=== PATIENT | female | born 1960 | race Caucasian/White ===

== ENCOUNTER 2016-12-16 13:25 | Emergency (ER) | payer MEDICARE, MEDICAID ==
[2016-12-16 14:02] VITALS: BP 126/83
[2016-12-16] MEDS ORDERED: Sodium Chloride 0.9% 10 ML Syringe FLUSH PRN (14:14)
[2016-12-16] MEDS ORDERED: Ketorolac 30 MG/ML SDV IVPUSH SCH (14:15)
[2016-12-16] MEDS ORDERED: methylPREDNISolone Sodium Succinate 125 MG/2 ML SDV IVPUSH ONE (14:16)
[2016-12-16] MEDS ORDERED: Metoclopramide 10 MG/2 ML SDV IVPUSH ONE (14:17)
[2016-12-16] MEDS ORDERED: HYDROmorphone 1 MG/ML Syringe IVPUSH ONE (14:17)
--- NOTE | 2016-12-16 14:20 | EDM.PDOC ---
ED HPI GENERAL MEDICAL PROBLEM - General Chief Complaint: Back Pain or Injury Stated Complaint: BACK PAIN Time Seen by Provider: 12/16/16 14:13 Source of Information: Reports: Patient History Limitations: Reports: No Limitations - History of Present Illness INITIAL COMMENTS - FREE TEXT/NARRATIVE: 56-year-old female presents to the ED with an acute exacerbation of chronic low back pain. She's not sure that she did anything out of the ordinary although she states she did a lot of housecleaning on Thursday, December 13. By Thursday morning she was experiencing increased low back pain and limited mobility. Condition worsened yesterday to the point she could hardly walk or get to the toilet. Today she states she could even dress herself. Patient has had 3 previous lumbar spine surgical procedures presumably all for discectomies as she reports no hardware has been placed in her lower back. She states they wanted to do another surgery but she has refused. He does with a chronic back pain but this is worse today than she's experienced for a lengthy period of time. Currently has pain across her lower back that radiates into both but talks and posterior laterally into both knees. She did not comment that the pain radiated below the knees. States her bowel and bladder function is still working normally as long as she can get on and off the toilet. No recent falls or injuries. Patient is currently using oxycodone 10/325 mg tablets intermittently for pain relief and 800 mg Motrin every 6 hours. Onset: Gradual Onset Date: 12/13/16 Duration: Day(s): Location: Reports: Back (Diffuse low back pain radiate into both but talks and posterior legs to the knees.) Quality: Reports: Ache, Burning Severity: Severe Improves with: Reports: Rest Worsens with: Reports: Movement Context: Denies: Activity, Exercise, Lifting, Sick Contact, Trauma, Other Associated Symptoms: Reports: No Other Symptoms Treatments RN MATERNITY: Reports: Other (see below) Lower Back Pain Score (Numeric/FACES): 10 - Related Data Allergies Allergy/AdvReac Type Severity Reaction Status Date / Time diltiazem Allergy Facial Verified 12/16/16 14:03 Swelling Home Meds: Home Meds Aspirin 81 mg PO DAILY 02/21/14 [History] Furosemide [Lasix] 20 mg PO DAILY 02/21/14 [History] Ibuprofen 800 mg PO ONCALL PRN 02/21/14 [History] ALPRAZolam [Xanax] 2 mg PO BEDTIME 07/21/15 [History] Cyclobenzaprine [Flexeril] 10 mg PO BEDTIME PRN #10 tablet 12/16/16 [Rx] Prednisone [IJD: predniSONE] 20 mg PO ASDIRECTED #18 tab 12/16/16 [Rx] oxyCODONE HCl [Oxycodone HCl] 10 mg PO BID 12/16/16 [History] oxyCODONE HCl/Acetaminophen [Percocet 10-325 mg Tablet] 1 each PO Q4H PRN #30 tablet 12/16/16 [Rx] Past Medical History HEENT History: Reports: Impaired Vision Other HEENT History: Wears glasses [employer] History: Reports: Musculoskeletal History: Reports: Back Pain, Chronic (Chronic low back pain with 3 previous discectomies.), Fracture Endocrine/Metabolic History: Reports: Diabetes, Type II - Past Surgical History Musculoskeletal Surgical History: Reports: Other (See Below) Social & Family History - Tobacco Use Smoking Status *Q: Current Every Day Smoker Years of Tobacco use: 3 Packs/Tins Daily: 0.5 - Alcohol Use Days Per Week of Alcohol Use: 0 - Recreational Drug Use Recreational Drug Use: No - Living Situation & Occupation Living situation: Reports: , Single Occupation: Disabled ED ROS GENERAL - Review of Systems Review Of Systems: See Below Constitutional: Reports: No Symptoms HEENT: Reports: No Symptoms Respiratory: Reports: No Symptoms Cardiovascular: Reports: No Symptoms Endocrine: Reports: No Symptoms GI/Abdominal: Reports: Constipation Musculoskeletal: Reports: Back Pain Skin: Reports: No Symptoms (Chronic low back pain initially confined to the lower back without radiculopathy.) Neurological: Reports: No Symptoms Psychiatric: Reports: No Symptoms Hematologic/Lymphatic: Reports: No Symptoms Immunologic: Reports: No Symptoms ED EXAM,LOWER BACK PAIN/INJURY - Physical Exam Exam: See Below Exam Limited By: No Limitations General Appearance: Alert, WD/WN, Moderate Distress (Appears to be in significant discomfort.) Respiratory/Chest: No Respiratory Distress, Lungs Clear, Normal Breath Sounds, No Accessory Muscle Use Cardiovascular: Normal Peripheral Pulses, Regular Rate, Rhythm, No Edema, No Murmur GI/Abdominal: Normal Bowel Sounds, Soft, Non-Tender, No Organomegaly Back Exam: Muscle Spasm (Mild muscle spasm appreciated on the right side from thoracic 10 to lumbar 5. Point of maximal tenderness is over the L4-L5 facet joint bilaterally and L5-S1 bilaterally perhaps worse on the right side as compared to the left.), Vertebral Tenderness, Other (She has significant pain on palpation of the superior half of the right SI joint as well as compared to the left.) Extremities: Normal Inspection, Normal Range of Motion, Non-Tender, No Pedal Edema Neurological: Normal Mood/Affect, CN II-XII Intact, Oriented x 3. No: Normal Gait, Normal Reflexes DTR - Lower Extremities: 0: Ankle (R), Ankle (L), 1+: Knee (R), Knee (L) Psychiatric: Normal Affect, Normal Mood Skin Exam: Warm, Dry, Intact, Normal Color, No Rash Course - Vital Signs Last Recorded V/S: Last Vital Signs Temp 36.3 C 12/16/16 14:00 Pulse 74 12/16/16 14:00 Resp 16 12/16/16 14:00 BP 126/83 12/16/16 14:00 Pulse Ox 95 12/16/16 14:00 - Orders/Labs/Meds Orders: Active Orders 24 hr Category Date Time Status Peripheral IV Care [RC] . DIRECTED Care 12/16/16 14:15 Active Ketorolac [Toradol] Med 12/16/16 14:15 Active 30 mg IVPUSH ONETIME Sodium Chloride 0.9% [Saline Flush] Med 12/16/16 14:14 Active 10 ml FLUSH ASDIRECTED PRN Peripheral IV Insertion Adult [OM.PC] Stat Oth 12/16/16 14:15 Ordered Medication Orders Ketorolac Tromethamine (Toradol) 30 mg IVPUSH ONETIME DANNY Last Admin: 12/16/16 14:59 Dose: 30 mg Sodium Chloride (Saline Flush) 10 ml FLUSH ASDIRECTED PRN PRN Reason: Keep Vein Open Last Admin: 12/16/16 15:04 Dose: 10 ml Meds: Medications Generic Name Dose Route Start Last Admin Trade Name Freq PRN Reason Stop Dose Admin Ketorolac Tromethamine 30 mg 12/16/16 14:15 12/16/16 14:59 Toradol IVPUSH 30 mg ONETIME DANNY Administration Sodium Chloride 10 ml 12/16/16 14:14 12/16/16 15:04 Saline Flush FLUSH 10 ml ASDIRECTED PRN Administration Keep Vein Open Discontinued Medications Generic Name Dose Route Start Last Admin Trade Name Amelia PRN Reason Stop Dose Admin Hydromorphone HCl 1 mg 12/16/16 14:17 12/16/16 15:02 Dilaudid IVPUSH 12/16/16 14:18 1 mg ONETIME ONE Administration Methylprednisolone Sodium Succinate 125 mg 12/16/16 14:16 12/16/16 15:08 Solu-Medrol IVPUSH 12/16/16 14:17 125 mg ONETIME ONE Administration Metoclopramide HCl 10 mg 12/16/16 14:17 12/16/16 14:56 Reglan IVPUSH 12/16/16 14:18 10 mg ONETIME ONE Administration - Radiology Interpretation Free Text/Narrative:: 56-year-old female presents to the ED with acute exacerbation of her chronic low back pain. Patient is disabled due to chronic low back pain. She's had 3 previous lumbar spine surgeries without fusion. She lives with chronic back pain but states that she suffered a an acute flare of pain on Thursday, December 13. She feels she may have overdone it a bit on the fourth at home with house cleaning procedures. Pain is increased over the last 48 hours to the point where she can barely walk or get on or off the toilet or in and out of a vehicle. Pain medicine that she has at home is not helping. Examination reveals mild right-sided paraspinal muscle spasm with a maximal tenderness over L4-L5 and L5-S1 facet joints bilaterally worse on the right as compared to the left. The right superior aspect of SI joint is also very inflamed on exam. Plan IV medications Dilaudid 1 mg with Reglan 10 mg Toradol 30 mg IV and Solu-Medrol 125 mg IV. Departure - Departure Time of Disposition: 15:44 Disposition: Home, Self-Care 01 Condition: Fair Clinical Impression: Acute exacerbation of chronic low back pain - Discharge Information Prescriptions: Cyclobenzaprine [Flexeril] 10 mg PO BEDTIME PRN #10 tablet PRN Reason: Back muscle spasm Prednisone [IJD: predniSONE] 20 mg PO ASDIRECTED #18 tab oxyCODONE HCl/Acetaminophen [Percocet 10-325 mg Tablet] 1 each PO Q4H PRN #30 tablet PRN Reason: Low back pain Forms: ED Department Discharge Additional Instructions: Evaluation the emergency room today in regards to acute exacerbation of chronic lower back pain . 5 significant pain to palpation of facet joints lower back more in the right side than on the left. Treatment was started in the ED with pain medication Dilaudid 1 mg and antinausea Reglan 10 mg so that she don't vomit from the Dilaudid. Solu-Medrol is a steroid to reduce pain and inflammation starts to work in about 4-6 hours. Toradol 30 mg was given as an anti-inflammatory pain medicine. Treatment at home is Percocet 10//25 milligram tablet one every 4-6 hours as needed for pain relief. Suggest using MiraLAX powder 17 g or 1 scoop daily while on the pain medication and make sure he did not develop constipation secondary to pain medication. Suggest prednisone 20 mg with breakfast and then with supper for the next 6 days and then 1 tablet in the morning only for another 6 days to reduce pain and inflammation. Continue either Motrin 800 mg every 6-8 hours or Aleve 2 tablets every 8 hours for anti-inflammatory effect. May use Flexeril 10 mg at bedtime as needed for relief of muscle spasm and to help sleep. Plan is with medications to slowly improve pain and inflammation over the next 3-5 days. If condition worsens or the pain travels further down to the legs or you develop troubles with her bowel or bladder function i.e. loss of control then you would need to return to the hospital. Follow-up with her personal care physician as needed. - My Orders Last 24 Hours: My Active Orders 12/16/16 14:14 Sodium Chloride 0.9% [Saline Flush] 10 ml FLUSH ASDIRECTED PRN 12/16/16 14:15 Peripheral IV Care [RC] . DIRECTED Ketorolac [Toradol] 30 mg IVPUSH ONETIME Peripheral IV Insertion Adult [OM.PC] Stat - Assessment/Plan Last 24 Hours: My Active Orders 12/16/16 14:14 Sodium Chloride 0.9% [Saline Flush] 10 ml FLUSH ASDIRECTED PRN 12/16/16 14:15 Peripheral IV Care [RC] . DIRECTED Ketorolac [Toradol] 30 mg IVPUSH ONETIME Peripheral IV Insertion Adult [OM.PC] Stat
== END 2016-12-16 16:00 | disposition home or self-care (01) ==
LOC: JD.ED 13:25
DX: M54.5 Low back pain (principal); G89.29 Other chronic pain; E11.9 Type 2 diabetes mellitus without complications; F17.210 Nicotine dependence, cigarettes, uncomplicated; Z79.82 Long term (current) use of aspirin; Z79.899 Other long term (current) drug therapy; Z88.8 Allergy status to other drugs, medicaments and biological substances
CPT/HCPCS: 96374; 96375; 99283; J1170; J1885; J2765; J2930; J7050; 99284

== ENCOUNTER 2017-07-25 16:15 | Emergency (ER) | payer MEDICARE, MEDICAID ==
[2017-07-25] MEDS ORDERED: Sodium Chloride 0.9% 1,000 ML IV ONE (17:53)
[2017-07-25] MEDS ORDERED: fentaNYL 100 MCG/2 ML SDV IVPUSH ONE (17:53)
--- NOTE | 2017-07-25 18:05 | EDM.PDOC ---
ED HPI GENERAL MEDICAL PROBLEM - General Chief Complaint: Lower Extremity Injury/Pain Stated Complaint: LEFT HIP PAIN Time Seen by Provider: 07/25/17 17:12 Source of Information: Reports: Patient History Limitations: Reports: No Limitations - History of Present Illness INITIAL COMMENTS - FREE TEXT/NARRATIVE: 57 y/o F with L groin pain. States she's had worsening pain and swelling in the L groin area and also extending to the L labia. She states pain has been worsening over the past several days. Shaved in the area several days ago which seemed to provoke the problem. No drainage. No fever. It feels warm to the touch. Pain worse with touch or movement. Has chronic pain and is taking usual meds for pain. Left Hip Pain Score (Numeric/FACES): 10 - Related Data Allergies Allergy/AdvReac Type Severity Reaction Status Date / Time diltiazem Allergy Facial Verified 12/16/16 14:03 Swelling Home Meds: Home Meds Aspirin 81 mg PO DAILY 02/21/14 [History] Furosemide [Lasix] 20 mg PO DAILY 02/21/14 [History] Ibuprofen 800 mg PO ONCALL PRN 02/21/14 [History] ALPRAZolam [Xanax] 2 mg PO BEDTIME 07/21/15 [History] Cyclobenzaprine [Flexeril] 10 mg PO BEDTIME PRN #10 tablet 12/16/16 [Rx] Prednisone [IJD: predniSONE] 20 mg PO ASDIRECTED #18 tab 12/16/16 [Rx] oxyCODONE HCl [Oxycodone HCl] 10 mg PO BID 12/16/16 [History] oxyCODONE HCl/Acetaminophen [Percocet 10-325 mg Tablet] 1 each PO Q4H PRN #30 tablet 12/16/16 [Rx] Sulfamethoxazole/Trimethoprim [Bactrim Ds Tablet] 1 each PO BID #20 tablet 07/25 [Rx] Past Medical History HEENT History: Reports: Impaired Vision Other HEENT History: Wears glasses [employer] History: Reports: Musculoskeletal History: Reports: Back Pain, Chronic, Fracture Endocrine/Metabolic History: Reports: Diabetes, Type II - Past Surgical History GI Surgical History: Reports: Colonoscopy Female Surgical History: Reports: D&C Musculoskeletal Surgical History: Reports: Other (See Below) Social & Family History - Tobacco Use Smoking Status *Q: Current Every Day Smoker Years of Tobacco use: 30 Packs/Tins Daily: 1 - Caffeine Use Caffeine Use: Reports: Coffee - Alcohol Use Days Per Week of Alcohol Use: 0 - Recreational Drug Use Recreational Drug Use: No - Living Situation & Occupation Living situation: Reports: , Single Occupation: Disabled Review of Systems - Review of Systems Review Of Systems: See Below Constitutional: Denies: Fever Eyes: Reports: No Symptoms Ears: Reports: No Symptoms Respiratory: Reports: No Symptoms Cardiovascular: Reports: No Symptoms GI/Abdominal: Reports: No Symptoms Skin: Reports: Rash ED EXAM, GENERAL - Physical Exam Exam: See Below Exam Limited By: No Limitations General Appearance: Alert, WD/WN, No Apparent Distress Eye Exam: Bilateral Eye: Normal Inspection Nose: Normal Inspection Throat/Mouth: Normal Inspection Head: Atraumatic, Normocephalic Neck: Normal Inspection Respiratory/Chest: No Respiratory Distress (Female) Exam: Other (L groin area has patch of confluent erythema and induration. Just medial to the inguinal fold, at the lateral edge of the labia majora, she has a small area of fluctuance. no spontaneous drainage. ) Neurological: Alert, Oriented Psychiatric: Normal Affect, Normal Mood Skin Exam: Warm, Dry, Intact ED TRAUMA EXTREMITY PROCEDURES - I&D Site: left labia majora Skin Prep: Chlorhexidine (Hibiciens) Local Anesthesia: Lidocaine: 1% with EPI Local Anesthetic Volume: 3cc Area Incised With: 11 Blade Drainage: Purulent Probed to Break Up Loculations: Yes Packed With: 1/4 in. Iodoform Complications: No Course - Vital Signs Last Recorded V/S: Last Vital Signs Temp 36.2 C 07/25/17 16:39 Pulse 76 07/25/17 19:35 Resp 16 07/25/17 19:35 BP 151/74 H 07/25/17 19:35 Pulse Ox 91 L 07/25/17 19:35 - Orders/Labs/Meds Orders: Active Orders 24 hr Category Date Time Status Communication Order [RC] STAT Care 07/25/17 17:54 Active Meds: Medications Discontinued Medications Generic Name Dose Route Start Last Admin Trade Name Amelia PRN Reason Stop Dose Admin Fentanyl 100 mcg 07/25/17 17:53 Sublimaze IVPUSH 07/25/17 17:54 ONETIME ONE Hydromorphone HCl 2 mg 07/25/17 18:14 07/25/17 18:48 Dilaudid IM 07/25/17 18:15 2 mg ONETIME ONE Administration Hydromorphone HCl Confirm 07/25/17 18:47 07/25/17 18:48 Dilaudid Administered 07/25/17 18:48 Not Given Dose 2 mg .ROUTE .STK-MED ONE Sodium Chloride 1,000 mls @ 1,000 mls/hr 07/25/17 17:53 Normal Saline IV 07/25/17 18:52 ONETIME ONE Lidocaine/Epinephrine 20 ml 07/25/17 17:54 07/25/17 18:49 Xylocaine 1% With Epinephrine 1:100,000 INJECT 07/25/17 17:55 20 ml ONETIME ONE Administration Ondansetron HCl 4 mg 07/25/17 17:53 07/25/17 18:49 Zofran IVPUSH 07/25/17 17:54 Not Given ONETIME ONE Trimethoprim/Sulfamethoxazole 2 tab 07/25/17 18:02 07/25/17 18:49 Septra Ds PO 07/25/17 18:03 2 tab ONETIME ONE Administration - Re-Assessments/Exams Free Text/Narrative Re-Assessment/Exam: 07/26/17 07:25 Abscess drained with moderate amount of pus. She does have a couple of centimeters of surrounding cellulitis, so will treat with Bactrim. Advised her to f/u at walk in clinic for packing change on Thursday. Discussed return precautions. Departure - Departure Time of Disposition: 19:10 Disposition: Home, Self-Care 01 Clinical Impression: Abscess - Discharge Information Prescriptions: Sulfamethoxazole/Trimethoprim [Bactrim Ds Tablet] 1 each PO BID #20 tablet Instructions: Skin Abscess Referrals: Yamileth Muir PA-C [Primary Care Provider] - Forms: ED Department Discharge Additional Instructions: 1. Keep wound area clean and dry. Once daily before showering remove packing. After showering dry the area and replace some packing if possible. 2. Call the walk in clinic on Thursday to schedule a followup for packing change, ideally on Thursday. Call [phone] to schedule. 3. Take trimethoprim-sulfa (Bactrim) as prescribed 4. Take your usual medications for pain 5. Return to the Emergency Department if area of pain/swelling get worse, or if you get a fever, or for any other concerning symptoms - My Orders Last 24 Hours: My Active Orders 07/25/17 17:54 Communication Order [RC] STAT - Assessment/Plan Last 24 Hours: My Active Orders 07/25/17 17:54 Communication Order [RC] STAT
[2017-07-25] MEDS: HYDROmorphone 0.5 MG/0.5 ML SYRINGE ONE (18:48)
[2017-07-25] MEDS: HYDROmorphone 1 MG/ML Syringe IM ONE (18:48)
[2017-07-25] MEDS: Lidocaine 1% with EPINEPHrine 1:100,000 20 ML MDV INJECT ONE (18:49)
[2017-07-25] MEDS: Sulfamethoxazole/Trimethoprim 800-160 MG Tab PO ONE (18:49)
[2017-07-25] MEDS: Ondansetron 4 MG/2 ML SDV IVPUSH ONE (18:49)
[2017-07-25 19:43] VITALS: BP 151/74
== END 2017-07-25 19:38 | disposition home or self-care (01) ==
LOC: JD.ED 16:15
DX: N76.4 Abscess of vulva (principal); Z79.899 Other long term (current) drug therapy; E11.9 Type 2 diabetes mellitus without complications; F17.210 Nicotine dependence, cigarettes, uncomplicated; Z88.8 Allergy status to other drugs, medicaments and biological substances; Z79.82 Long term (current) use of aspirin
CPT/HCPCS: 56405; 99283; A9270; J1170; 10060; 96372

== ENCOUNTER 2017-12-28 05:04 | Emergency (ER) | payer MEDICARE, MEDICAID ==
[2017-12-28 05:15] VITALS: BP 147/78
[2017-12-28] MEDS ORDERED: HYDROmorphone 1 MG/ML Syringe IVPUSH ONE ×2 (05:28→07:25)
[2017-12-28] MEDS ORDERED: Metoclopramide 10 MG/2 ML SDV IVPUSH ONE (05:28)
--- NOTE | 2017-12-28 05:28 | EDM.PDOC ---
<Suleiman Lorenzo - Last Filed: 12/28/17 10:59> ED HPI GENERAL MEDICAL PROBLEM - General Chief Complaint: Abdominal Pain Stated Complaint: SEVERE ABDOMINAL PAIN LEFT SIDE Time Seen by Provider: 12/28/17 05:19 - Related Data Allergies Allergy/AdvReac Type Severity Reaction Status Date / Time diltiazem Allergy Facial Verified 12/28/17 05:11 Swelling Home Meds: Home Meds Aspirin 81 mg PO DAILY 02/21/14 [History] Furosemide [Lasix] 20 mg PO DAILY 02/21/14 [History] Ibuprofen 800 mg PO ONCALL PRN 02/21/14 [History] ALPRAZolam [Xanax] 2 mg PO BEDTIME 07/21/15 [History] Cyclobenzaprine [Flexeril] 10 mg PO BEDTIME PRN #10 tablet 12/16/16 [Rx] Prednisone [IJD: predniSONE] 20 mg PO ASDIRECTED #18 tab 12/16/16 [Rx] oxyCODONE HCl [Oxycodone HCl] 10 mg PO BID 12/16/16 [History] oxyCODONE HCl/Acetaminophen [Percocet 10-325 mg Tablet] 1 each PO Q4H PRN #30 tablet 12/16/16 [Rx] Sulfamethoxazole/Trimethoprim [Bactrim Ds Tablet] 1 each PO BID #20 tablet 07/25 [Rx] Course - Vital Signs Last Recorded V/S: Last Vital Signs Temp 36.6 C 12/28/17 05:12 Pulse 87 12/28/17 05:12 Resp 18 12/28/17 05:12 BP 147/78 H 12/28/17 05:12 Pulse Ox 94 L 12/28/17 05:12 - Orders/Labs/Meds Orders: Active Orders 24 hr Category Date Time Status Abdomen Pelvis w Cont [CT] Stat Exams 12/28/17 06:36 Taken Labs: Laboratory Tests 12/28/17 12/28/17 12/28/17 Range/Units 05:41 05:47 05:47 WBC 12.59 H (3.98-10.04) K/mm3 RBC 4.97 (3.98-5.22) M/mm3 Hgb 15.3 (11.2-15.7) gm/L Hct 44.8 (34.1-44.9) % MCV 90.1 (79.4-94.8) fl MCH 30.8 (25.6-32.2) pg MCHC 34.2 (32.2-35.5) g/dl RDW Std Deviation 43.2 (36.4-46.3) fL Plt Count 234 (182-369) K/mm3 MPV 9.8 (9.4-12.3) fl Neutrophils % (Manual) 50 (40-60) % Band Neutrophils % 0 (0-10) % Lymphocytes % (Manual) 43 H (20-40) % Atypical Lymphs % 0 % Monocytes % (Manual) 6 (2-10) % Eosinophils % (Manual) 1 (0.7-5.8) % Basophils % (Manual) 0 L (0.1-1.2) Platelet Estimate Adequate RBC Morph Comment Normal PT 10.3 (9.5-12.1) SECONDS INR 0.94 APTT 28 (24-31) SECONDS Sodium (136-145) mEq/L Potassium (3.5-5.1) mEq/L Chloride (98-107) mEq/L Carbon Dioxide (21-32) mEq/L Anion Gap (5-15) BUN (7-18) mg/dL Creatinine (0.55-1.02) mg/dL Est Cr Clr Drug Dosing mL/min Estimated GFR (MDRD) (>60) mL/min BUN/Creatinine Ratio (14-18) Glucose (74-106) mg/dL POC Glucose 223 H (70-105) mg/dL Hemoglobin A1c (4.50-6.20) % Lactic Acid (0.4-2.0) mmol/L Calcium (8.5-10.1) mg/dL Magnesium (1.8-2.4) mg/dl Total Bilirubin (0.2-1.0) mg/dL AST (15-37) U/L ALT (14-59) U/L Alkaline Phosphatase (46-116) U/L C-Reactive Protein (<1.0) mg/dL Total Protein (6.4-8.2) g/dl Albumin (3.4-5.0) g/dl Globulin gm/dL Albumin/Globulin Ratio (1-2) Lipase (73-393) U/L Urine Color (Yellow) Urine Appearance (Clear) Urine pH (5.0-8.0) Ur Specific [place] (1.005-1.030) Urine Protein (Negative) Urine Glucose (UA) (Negative) Urine Ketones (Negative) Urine Occult Blood (Negative) Urine Nitrite (Negative) Urine Bilirubin (Negative) Urine Urobilinogen (0.2-1.0) Ur Leukocyte Esterase (Negative) Urine RBC (0-5) /hpf Urine WBC (0-5) /hpf Ur Epithelial Cells (0-5) /hpf Urine Bacteria (FEW) /hpf Urine Mucus (FEW) /hpf 12/28/17 12/28/17 12/28/17 Range/Units 05:47 05:47 05:47 WBC (3.98-10.04) K/mm3 RBC (3.98-5.22) M/mm3 Hgb (11.2-15.7) gm/L Hct (34.1-44.9) % MCV (79.4-94.8) fl MCH (25.6-32.2) pg MCHC (32.2-35.5) g/dl RDW Std Deviation (36.4-46.3) fL Plt Count (182-369) K/mm3 MPV (9.4-12.3) fl Neutrophils % (Manual) (40-60) % Band Neutrophils % (0-10) % Lymphocytes % (Manual) (20-40) % Atypical Lymphs % % Monocytes % (Manual) (2-10) % Eosinophils % (Manual) (0.7-5.8) % Basophils % (Manual) (0.1-1.2) Platelet Estimate RBC Morph Comment PT (9.5-12.1) SECONDS INR APTT (24-31) SECONDS Sodium 140 (136-145) mEq/L Potassium 3.8 (3.5-5.1) mEq/L Chloride 103 (98-107) mEq/L Carbon Dioxide 26 (21-32) mEq/L Anion Gap 14.8 (5-15) BUN 12 (7-18) mg/dL Creatinine 0.9 (0.55-1.02) mg/dL Est Cr Clr Drug Dosing 71.56 mL/min Estimated GFR (MDRD) > 60 (>60) mL/min BUN/Creatinine Ratio 13.3 L (14-18) Glucose 221 H (74-106) mg/dL POC Glucose (70-105) mg/dL Hemoglobin A1c 7.70 H (4.50-6.20) % Lactic Acid 1.0 (0.4-2.0) mmol/L Calcium 8.5 (8.5-10.1) mg/dL Magnesium 1.9 (1.8-2.4) mg/dl Total Bilirubin 0.5 (0.2-1.0) mg/dL AST 20 (15-37) U/L ALT 29 (14-59) U/L Alkaline Phosphatase 118 H (46-116) U/L C-Reactive Protein 6.1 H* (<1.0) mg/dL Total Protein 7.7 (6.4-8.2) g/dl Albumin 3.5 (3.4-5.0) g/dl Globulin 4.2 gm/dL Albumin/Globulin Ratio 0.8 L (1-2) Lipase 61 L (73-393) U/L Urine Color (Yellow) Urine Appearance (Clear) Urine pH (5.0-8.0) Ur Specific [place] (1.005-1.030) Urine Protein (Negative) Urine Glucose (UA) (Negative) Urine Ketones (Negative) Urine Occult Blood (Negative) Urine Nitrite (Negative) Urine Bilirubin (Negative) Urine Urobilinogen (0.2-1.0) Ur Leukocyte Esterase (Negative) Urine RBC (0-5) /hpf Urine WBC (0-5) /hpf Ur Epithelial Cells (0-5) /hpf Urine Bacteria (FEW) /hpf Urine Mucus (FEW) /hpf 12/28/17 Range/Units 07:35 WBC (3.98-10.04) K/mm3 RBC (3.98-5.22) M/mm3 Hgb (11.2-15.7) gm/L Hct (34.1-44.9) % MCV (79.4-94.8) fl MCH (25.6-32.2) pg MCHC (32.2-35.5) g/dl RDW Std Deviation (36.4-46.3) fL Plt Count (182-369) K/mm3 MPV (9.4-12.3) fl Neutrophils % (Manual) (40-60) % Band Neutrophils % (0-10) % Lymphocytes % (Manual) (20-40) % Atypical Lymphs % % Monocytes % (Manual) (2-10) % Eosinophils % (Manual) (0.7-5.8) % Basophils % (Manual) (0.1-1.2) Platelet Estimate RBC Morph Comment PT (9.5-12.1) SECONDS INR APTT (24-31) SECONDS Sodium (136-145) mEq/L Potassium (3.5-5.1) mEq/L Chloride (98-107) mEq/L Carbon Dioxide (21-32) mEq/L Anion Gap (5-15) BUN (7-18) mg/dL Creatinine (0.55-1.02) mg/dL Est Cr Clr Drug Dosing mL/min Estimated GFR (MDRD) (>60) mL/min BUN/Creatinine Ratio (14-18) Glucose (74-106) mg/dL POC Glucose (70-105) mg/dL Hemoglobin A1c (4.50-6.20) % Lactic Acid (0.4-2.0) mmol/L Calcium (8.5-10.1) mg/dL Magnesium (1.8-2.4) mg/dl Total Bilirubin (0.2-1.0) mg/dL AST (15-37) U/L ALT (14-59) U/L Alkaline Phosphatase (46-116) U/L C-Reactive Protein (<1.0) mg/dL Total Protein (6.4-8.2) g/dl Albumin (3.4-5.0) g/dl Globulin gm/dL Albumin/Globulin Ratio (1-2) Lipase (73-393) U/L Urine Color Yellow (Yellow) Urine Appearance Clear (Clear) Urine pH 6.5 (5.0-8.0) Ur Specific [place] 1.015 (1.005-1.030) Urine Protein Negative (Negative) Urine Glucose (UA) Trace H (Negative) Urine Ketones Negative (Negative) Urine Occult Blood Negative (Negative) Urine Nitrite Negative (Negative) Urine Bilirubin Negative (Negative) Urine Urobilinogen 0.2 (0.2-1.0) Ur Leukocyte Esterase Negative (Negative) Urine RBC Not seen (0-5) /hpf Urine WBC Not seen (0-5) /hpf Ur Epithelial Cells Not seen (0-5) /hpf Urine Bacteria Not seen (FEW) /hpf Urine Mucus Not seen (FEW) /hpf Meds: Medications Discontinued Medications Generic Name Dose Route Start Last Admin Trade Name Amelia PRN Reason Stop Dose Admin Diatrizoate Meglum/Diatrizoate Sod 120 ml 12/28/17 07:05 12/28/17 08:13 Gastrografin 37% PO 12/28/17 07:06 90 ml ONETIME ONE Administration Fentanyl 100 mcg 12/28/17 10:31 12/28/17 10:43 Sublimaze IVPUSH 12/28/17 10:32 100 mcg ONETIME ONE Administration Heparin Sodium (Porcine) 5,000 units 12/28/17 10:27 12/28/17 10:41 Heparin Sodium IVPUSH 12/28/17 10:28 5,000 units ONETIME ONE Administration Hydromorphone HCl 1 mg 12/28/17 05:28 12/28/17 05:41 Dilaudid IVPUSH 12/28/17 05:29 1 mg ONETIME ONE Administration Hydromorphone HCl 1 mg 12/28/17 07:25 12/28/17 07:34 Dilaudid IVPUSH 12/28/17 07:26 1 mg ONETIME ONE Administration Sodium Chloride 1,000 mls @ 500 mls/hr 12/28/17 05:30 12/28/17 05:38 Normal Saline IV 500 mls/hr ASDIRECTED DANNY Administration Sodium Chloride 1,000 mls @ 150 mls/hr 12/28/17 08:15 12/28/17 08:23 Normal Saline IV 150 mls/hr ASDIRECTED DANNY Administration Heparin Sodium/Dextrose 25,000 units in 500 mls @ 20.058 mls/hr 12/28/17 10: 30 12/28/17 10:53 Heparin 25,000 Units In D5w 500 Ml IV 11 units/kg/hr TITRATE DANNY 20.058 mls/hr Administration Protocol 11 UNITS/KG/HR Iopamidol 150 ml 12/28/17 07:05 12/28/17 08:13 Isovue-300 (61%) IVPUSH 12/28/17 07:06 125 ml ONETIME ONE Administration Metoclopramide HCl 10 mg 12/28/17 05:28 12/28/17 05:39 Reglan IVPUSH 12/28/17 05:29 10 mg ONETIME ONE Administration Sodium Chloride 10 ml 12/28/17 07:05 12/28/17 08:13 Saline Flush FLUSH 10 ml ONETIME PRN Administration IV FLUSH - Re-Assessments/Exams Free Text/Narrative Re-Assessment/Exam: 12/28/17 10:[address] Martinez. Her CT shows an acute splenic infarct involves 30% of the spleen. Its cause is not identified. 6 X 4 pulmonary nodule in the right lower lone on acial image #1. Mild circumferential esophageal wall thickening 5mm in the distal esophagus suggests esophagitis in the proper clinical setting. The patient still has pain so I ordered fentanyl 100mcg IV. I also ordered a heparin bolus of 5,000 units IV and a drip at 1,000units/hr. I called our hospitalist and she felt he should go to [place]. I called [facility] in [place] and talked with the hospitalist Dr Goodwin and the ER doctor Dr La and destinye accepted the patient. Departure - Departure Time of Disposition: 11:05 Disposition: DC/Tfer to Acute Hospital 02 Condition: Fair Clinical Impression: Infarction of spleen - Discharge Information Referrals: Shannan Jeffers PA-C [Primary Care Provider] - Forms: ED Department Discharge - My Orders Last 24 Hours: My Active Orders 12/28/17 06:36 Abdomen Pelvis w Cont [CT] Stat - Assessment/Plan Last 24 Hours: My Active Orders 12/28/17 06:36 Abdomen Pelvis w Cont [CT] Stat <Sai Martinez - Last Filed: 12/29/17 07:20> ED HPI GENERAL MEDICAL PROBLEM - General Source of Information: Reports: Patient History Limitations: Reports: No Limitations - History of Present Illness INITIAL COMMENTS - FREE TEXT/NARRATIVE: 57-year-old female female presents to the ED with diffuse upper abdominal pain but primarily left upper quadrant. She states that she awoke with severe upper abdominal pain in the left upper quadrant about 2:00 in the morning December 27. She suffered with pain throughout the day and was planning to try and get into the clinic this morning. Pain worsened in the last few hours to the point that she couldn't stand it. She had taken a pain pill (oxycodone 10mg) before bed hoping this would help but it failed to relieve the pain. Presently she cannot take a deep breath as it makes the pain much worse left upper quadrant. Feels most the pain just underneath her left rib cage in the mid axillary line. No recent falls or trauma to her ribs. Note she is a type II diabetic currently on no medication as she had adverse effects to metformin and was advised to follow diet and exercise only. She clinically is having significant polyuria and polydipsia suggesting uncontrolled type 2 diabetes. Is also on Lasix once daily. She's had some chills but was not aware of any fever. No rigors no past history of any abdominal surgery. No known diverticuli or history of diverticulitis does not drink any alcohol. No history of pancreatitis she reported that she had a large bowel movement at the onset of pain yesterday and subsequently had 3 or 4 smaller stools that were semi-formed since. No blood was noted in the stool. Current pain is constant with a mild colicky component. Onset: Sudden Onset Date: 12/27/17 Onset Time: 02:00 (Pain present for about 27 hours) Duration: Hour(s): Location: Reports: Abdomen (Entire abdomen but worse left upper quadrant of the abdomen in the anterior and midaxillary line) Quality: Reports: Ache, Other Severity: Moderate (8 out of 10) Improves with: Reports: Rest Worsens with: Reports: Other (Deep breath or coughing makes it much worse), Movement Context: Reports: Other. Denies: Activity, Exercise, Lifting, Sick Contact, Trauma Associated Symptoms: Reports: Fever/Chills, Loss of Appetite, Malaise, Nausea/ Vomiting (Nausea but no vomiting), Weakness. Denies: Confusion (Spontaneous occurrence that woke him from sleep at 2:00 yesterday morning.), Cough, cough w sputum, Diaphoresis (Chills but no fever), Headaches, Rash, Seizure, Shortness of Breath, Syncope Treatments BEHAVIORIST: Reports: Other (see below) (Hydrocodone pill before bed last night) Left Lower Abdomen Pain Score (Numeric/FACES): 10 Past Medical History HEENT History: Reports: Impaired Vision Other HEENT History: Wears glasses Cardiovascular History: Reports: High Cholesterol [employer] History: Reports: Musculoskeletal History: Reports: Back Pain, Chronic, Fracture Psychiatric History: Reports: Anxiety Endocrine/Metabolic History: Reports: Diabetes, Type II - Past Surgical History GI Surgical History: Reports: Colonoscopy Female Surgical History: Reports: D&C Social & Family History - Caffeine Use Caffeine Use: Reports: Coffee - Living Situation & Occupation Living situation: Reports: , Single Occupation: Disabled ED ROS GENERAL - Review of Systems Review Of Systems: See Below Constitutional: Reports: Chills, Malaise, Weakness, Fatigue, Decreased Appetite. Denies: Fever HEENT: Reports: No Symptoms Respiratory: Reports: Shortness of Breath. Denies: Wheezing, Pleuritic Chest Pain (Splinting respirations as deep breathing makes the abdominal pain much worse left upper quadrant), Cough, Sputum, Hemoptysis Cardiovascular: Reports: Blood Pressure Problem, Dyspnea on Exertion. Denies: Claudication, Edema, Lightheadedness, Orthopnea Endocrine: Reports: High Glucose GI/Abdominal: Reports: Abdominal Pain, Decreased Appetite (See history of present illness). Denies: Constipation, Diarrhea, Difficulty Swallowing, Flatus , Hematemesis, Hematochezia, Melena : Reports: Frequency (Usually every hour) Musculoskeletal: Reports: Back Pain Skin: Reports: No Symptoms Neurological: Reports: No Symptoms Psychiatric: Reports: No Symptoms Hematologic/Lymphatic: Reports: No Symptoms Immunologic: Reports: No Symptoms ED EXAM, GI/ABD - Physical Exam Exam: See Below Exam Limited By: No Limitations General Appearance: Alert, WD/WN, Mild Distress, Other (Splinting respirations. O2 sats 94% on room air.) Eyes: Bilateral: Normal Appearance (No jaundice) Throat/Mouth: Other (Tongue is mildly dry and coated.) Head: Atraumatic Neck: Normal Inspection, Supple, Non-Tender, Full Range of Motion. No: Lymphadenopathy (L), Lymphadenopathy (R) Respiratory/Chest: Lungs Clear, Chest Non-Tender, Splinting (Splinting respirations due to worsening of pain left upper quadrant when she deep breathes ). No: Normal Breath Sounds Cardiovascular: Normal Peripheral Pulses, Regular Rate, Rhythm, No Edema, No Gallop, No Murmur, No Rub GI/Abdominal Exam: Soft, Guarding (Tender in the epigastrium and left upper quadrant of the abdomen with guarding), Tender, Abnormal Bowel Sounds ( Decreased bowel sounds.). No: Rigid, Rebound Back Exam: Normal Inspection, Full Range of Motion, CVA Tenderness (L) (Mild), Decreased Range of Motion, Vertebral Tenderness. No: CVA Tenderness (R), Muscle Spasm Extremities: Normal Inspection, Normal Range of Motion, Non-Tender, No Pedal Edema Neurological: Alert, Oriented, CN II-XII Intact, Normal Cognition, Other ( Walking very slow.). No: Normal Gait Psychiatric: Normal Affect, Normal Mood Skin Exam: Warm, Dry, Intact, Normal Color, No Rash EKG INTERPRETATION EKG Date: 12/28/17 Time: 06:00 Rhythm: NSR Rate (Beats/Min): 70 [place]: Normal P-Wave: Present QRS: RBBB (Incomplete right bundle branch block) ST-T: Other (T-wave inversion in V1 and V2 and nonspecific finding) QT: Prolonged (QT is mildly prolonged) EKG Interpretation Comments: Borderline ECG Course - Orders/Labs/Meds Orders: Active Orders 24 hr Category Date Time Status Abdomen Pelvis w Cont [CT] Stat Exams 12/28/17 06:36 Taken Labs: Laboratory Tests 12/28/17 12/28/17 12/28/17 Range/Units 05:41 05:47 05:47 WBC 12.59 H (3.98-10.04) K/mm3 RBC 4.97 (3.98-5.22) M/mm3 Hgb 15.3 (11.2-15.7) gm/L Hct 44.8 (34.1-44.9) % MCV 90.1 (79.4-94.8) fl MCH 30.8 (25.6-32.2) pg MCHC 34.2 (32.2-35.5) g/dl RDW Std Deviation 43.2 (36.4-46.3) fL Plt Count 234 (182-369) K/mm3 MPV 9.8 (9.4-12.3) fl Neutrophils % (Manual) 50 (40-60) % Band Neutrophils % 0 (0-10) % Lymphocytes % (Manual) 43 H (20-40) % Atypical Lymphs % 0 % Monocytes % (Manual) 6 (2-10) % Eosinophils % (Manual) 1 (0.7-5.8) % Basophils % (Manual) 0 L (0.1-1.2) Platelet Estimate Adequate RBC Morph Comment Normal PT 10.3 (9.5-12.1) SECONDS INR 0.94 APTT 28 (24-31) SECONDS Sodium (136-145) mEq/L Potassium (3.5-5.1) mEq/L Chloride (98-107) mEq/L Carbon Dioxide (21-32) mEq/L Anion Gap (5-15) BUN (7-18) mg/dL Creatinine (0.55-1.02) mg/dL Est Cr Clr Drug Dosing mL/min Estimated GFR (MDRD) (>60) mL/min BUN/Creatinine Ratio (14-18) Glucose (74-106) mg/dL POC Glucose 223 H (70-105) mg/dL Hemoglobin A1c (4.50-6.20) % Lactic Acid (0.4-2.0) mmol/L Calcium (8.5-10.1) mg/dL Magnesium (1.8-2.4) mg/dl Total Bilirubin (0.2-1.0) mg/dL AST (15-37) U/L ALT (14-59) U/L Alkaline Phosphatase (46-116) U/L C-Reactive Protein (<1.0) mg/dL Total Protein (6.4-8.2) g/dl Albumin (3.4-5.0) g/dl Globulin gm/dL Albumin/Globulin Ratio (1-2) Lipase (73-393) U/L Urine Color (Yellow) Urine Appearance (Clear) Urine pH (5.0-8.0) Ur Specific [place] (1.005-1.030) Urine Protein (Negative) Urine Glucose (UA) (Negative) Urine Ketones (Negative) Urine Occult Blood (Negative) Urine Nitrite (Negative) Urine Bilirubin (Negative) Urine Urobilinogen (0.2-1.0) Ur Leukocyte Esterase (Negative) Urine RBC (0-5) /hpf Urine WBC (0-5) /hpf Ur Epithelial Cells (0-5) /hpf Urine Bacteria (FEW) /hpf Urine Mucus (FEW) /hpf 12/28/17 12/28/17 12/28/17 Range/Units 05:47 05:47 05:47 WBC (3.98-10.04) K/mm3 RBC (3.98-5.22) M/mm3 Hgb (11.2-15.7) gm/L Hct (34.1-44.9) % MCV (79.4-94.8) fl MCH (25.6-32.2) pg MCHC (32.2-35.5) g/dl RDW Std Deviation (36.4-46.3) fL Plt Count (182-369) K/mm3 MPV (9.4-12.3) fl Neutrophils % (Manual) (40-60) % Band Neutrophils % (0-10) % Lymphocytes % (Manual) (20-40) % Atypical Lymphs % % Monocytes % (Manual) (2-10) % Eosinophils % (Manual) (0.7-5.8) % Basophils % (Manual) (0.1-1.2) Platelet Estimate RBC Morph Comment PT (9.5-12.1) SECONDS INR APTT (24-31) SECONDS Sodium 140 (136-145) mEq/L Potassium 3.8 (3.5-5.1) mEq/L Chloride 103 (98-107) mEq/L Carbon Dioxide 26 (21-32) mEq/L Anion Gap 14.8 (5-15) BUN 12 (7-18) mg/dL Creatinine 0.9 (0.55-1.02) mg/dL Est Cr Clr Drug Dosing 71.56 mL/min Estimated GFR (MDRD) > 60 (>60) mL/min BUN/Creatinine Ratio 13.3 L (14-18) Glucose 221 H (74-106) mg/dL POC Glucose (70-105) mg/dL Hemoglobin A1c 7.70 H (4.50-6.20) % Lactic Acid 1.0 (0.4-2.0) mmol/L Calcium 8.5 (8.5-10.1) mg/dL Magnesium 1.9 (1.8-2.4) mg/dl Total Bilirubin 0.5 (0.2-1.0) mg/dL AST 20 (15-37) U/L ALT 29 (14-59) U/L Alkaline Phosphatase 118 H (46-116) U/L C-Reactive Protein 6.1 H* (<1.0) mg/dL Total Protein 7.7 (6.4-8.2) g/dl Albumin 3.5 (3.4-5.0) g/dl Globulin 4.2 gm/dL Albumin/Globulin Ratio 0.8 L (1-2) Lipase 61 L (73-393) U/L Urine Color (Yellow) Urine Appearance (Clear) Urine pH (5.0-8.0) Ur Specific [place] (1.005-1.030) Urine Protein (Negative) Urine Glucose (UA) (Negative) Urine Ketones (Negative) Urine Occult Blood (Negative) Urine Nitrite (Negative) Urine Bilirubin (Negative) Urine Urobilinogen (0.2-1.0) Ur Leukocyte Esterase (Negative) Urine RBC (0-5) /hpf Urine WBC (0-5) /hpf Ur Epithelial Cells (0-5) /hpf Urine Bacteria (FEW) /hpf Urine Mucus (FEW) /hpf 12/28/17 Range/Units 07:35 WBC (3.98-10.04) K/mm3 RBC (3.98-5.22) M/mm3 Hgb (11.2-15.7) gm/L Hct (34.1-44.9) % MCV (79.4-94.8) fl MCH (25.6-32.2) pg MCHC (32.2-35.5) g/dl RDW Std Deviation (36.4-46.3) fL Plt Count (182-369) K/mm3 MPV (9.4-12.3) fl Neutrophils % (Manual) (40-60) % Band Neutrophils % (0-10) % Lymphocytes % (Manual) (20-40) % Atypical Lymphs % % Monocytes % (Manual) (2-10) % Eosinophils % (Manual) (0.7-5.8) % Basophils % (Manual) (0.1-1.2) Platelet Estimate RBC Morph Comment PT (9.5-12.1) SECONDS INR APTT (24-31) SECONDS Sodium (136-145) mEq/L Potassium (3.5-5.1) mEq/L Chloride (98-107) mEq/L Carbon Dioxide (21-32) mEq/L Anion Gap (5-15) BUN (7-18) mg/dL Creatinine (0.55-1.02) mg/dL Est Cr Clr Drug Dosing mL/min Estimated GFR (MDRD) (>60) mL/min BUN/Creatinine Ratio (14-18) Glucose (74-106) mg/dL POC Glucose (70-105) mg/dL Hemoglobin A1c (4.50-6.20) % Lactic Acid (0.4-2.0) mmol/L Calcium (8.5-10.1) mg/dL Magnesium (1.8-2.4) mg/dl Total Bilirubin (0.2-1.0) mg/dL AST (15-37) U/L ALT (14-59) U/L Alkaline Phosphatase (46-116) U/L C-Reactive Protein (<1.0) mg/dL Total Protein (6.4-8.2) g/dl Albumin (3.4-5.0) g/dl Globulin gm/dL Albumin/Globulin Ratio (1-2) Lipase (73-393) U/L Urine Color Yellow (Yellow) Urine Appearance Clear (Clear) Urine pH 6.5 (5.0-8.0) Ur Specific [place] 1.015 (1.005-1.030) Urine Protein Negative (Negative) Urine Glucose (UA) Trace H (Negative) Urine Ketones Negative (Negative) Urine Occult Blood Negative (Negative) Urine Nitrite Negative (Negative) Urine Bilirubin Negative (Negative) Urine Urobilinogen 0.2 (0.2-1.0) Ur Leukocyte Esterase Negative (Negative) Urine RBC Not seen (0-5) /hpf Urine WBC Not seen (0-5) /hpf Ur Epithelial Cells Not seen (0-5) /hpf Urine Bacteria Not seen (FEW) /hpf Urine Mucus Not seen (FEW) /hpf Meds: Medications Discontinued Medications Generic Name Dose Route Start Last Admin Trade Name Freq PRN Reason Stop Dose Admin Diatrizoate Meglum/Diatrizoate Sod 120 ml 12/28/17 07:05 12/28/17 08:13 Gastrografin 37% PO 12/28/17 07:06 90 ml ONETIME ONE Administration Fentanyl 100 mcg 12/28/17 10:31 12/28/17 10:43 Sublimaze IVPUSH 12/28/17 10:32 100 mcg ONETIME ONE Administration Heparin Sodium (Porcine) 5,000 units 12/28/17 10:27 12/28/17 10:41 Heparin Sodium IVPUSH 12/28/17 10:28 5,000 units ONETIME ONE Administration Hydromorphone HCl 1 mg 12/28/17 05:28 12/28/17 05:41 Dilaudid IVPUSH 12/28/17 05:29 1 mg ONETIME ONE Administration Hydromorphone HCl 1 mg 12/28/17 07:25 08/20/18 07:34 Dilaudid IVPUSH 12/28/17 07:26 1 mg ONETIME ONE Administration Sodium Chloride 1,000 mls @ 500 mls/hr 12/28/17 05:30 12/28/17 05:38 Normal Saline IV 500 mls/hr ASDIRECTED DANNY Administration Sodium Chloride 1,000 mls @ 150 mls/hr 12/28/17 08:15 12/28/17 08:23 Normal Saline IV 150 mls/hr ASDIRECTED DANNY Administration Heparin Sodium/Dextrose 25,000 units in 500 mls @ 20.058 mls/hr 12/28/17 10: 30 12/28/17 10:53 Heparin 25,000 Units In D5w 500 Ml IV 11 units/kg/hr TITRATE DANNY 20.058 mls/hr Administration Protocol 11 UNITS/KG/HR Iopamidol 150 ml 12/28/17 07:05 12/28/17 08:13 Isovue-300 (61%) IVPUSH 12/28/17 07:06 125 ml ONETIME ONE Administration Metoclopramide HCl 10 mg 12/28/17 05:28 12/28/17 05:39 Reglan IVPUSH 12/28/17 05:29 10 mg ONETIME ONE Administration Sodium Chloride 10 ml 12/28/17 07:05 12/28/17 08:13 Saline Flush FLUSH 10 ml ONETIME PRN Administration IV FLUSH - Radiology Interpretation Free Text/Narrative:: 57-year-old female presents to the ED with acute onset of epigastric left upper quadrant abdominal pain at 2:00 yesterday morning. Subsequently she had a large formed bowel movement with no blood. Since then she's had 3 or 4 smaller semi- formed stools without blood. Pain has persisted over the last 27 hours and she was unable to sleep due to the severity of the pain. Pain worsened about 3:00 this morning and is felt primarily in the left upper quadrant of the abdomen underneath her rib cage in the midaxillary line. Denies any trauma to this area. Clinically she feels mildly warm to palpation. She's had a few chills. Is she has severe frequency. She by history has type 2 diabetes which is currently uncontrolled as she's not on any medication. Metformin was discontinued due to side effects. She was advised to follow diet and exercise program. She does not check her blood sugars. She has associated polydipsia. No history of gastroesophageal reflux disease or chronic epigastric pain to suggest peptic ulcer disease. Examination reveals pain in the epigastrium and left upper quadrant of the abdomen with guarding. Respirations because it makes the pain worse with deep breathing. Possible pyelonephritis. Possible diverticulitis. Plan KUB to be done to rule out free air. Routine labs including blood cultures 2 and glycosylated protein to be done. IV will be normal saline at 500 mils per hour. Given Dilaudid 1 mg IV for pain relief with Reglan 10 mg IV for nausea relief. - Re-Assessments/Exams Free Text/Narrative Re-Assessment/Exam: 12/28/17 06:43 Labs reveal an elevated white count at 12.59 with 50% neutrophils and no bands. Hemoglobin is 15.3 with hematocrit of 44.8. Platelet count is normal at 10 34,000. Sodium is 140 with potassium of 3.8. Chloride is 103 with a bicarbonate of 26. And a gap is 14.8. BUN is 12. Creatinine is 0.9. GFR is greater than 60. Glucose is elevated at 221. At the bedside was 223. Hemoglobin A1c is 7.70. Lactic acid is 1.0 normal. Calcium is 8.5. Magnesium is 1.9. Total bilirubin is 0.5. AST is 20 with an ALT of 29. Alk phosphatase is 118. C-reactive protein is elevated at 6.1. Lipase is normal at 61. The KUB of the abdomen shows diffuse air throughout the small and large bowel with I believe stool in the rectal vault. There is a collection of air up underneath the left hemidiaphragm on the left side. No bowel obstruction is present. Her creatinine is normal I will therefore proceed with CT of the abdomen with oral and IV contrast. Of note the urinalysis is not yet available to rule out a pyelonephritis. 12/28/17 07:16 care will be transferred to Dr. Lorenzo at change of shift. Urinalysis is pending. CT of the abdomen and pelvis with oral and IV contrast has been ordered. Patient reports pain is much improved after initial dose of medication. 12/28/17 07:23 patient reports that the pain is starting to come back in her left upper quadrant or abdomen she has still has splinting respirations. I will repeat Dilaudid 1 mg IV. She is currently drinking her oral contrast without issue. She does feel warmer to palpation. I will have the nurses recheck her temperature. Departure - Discharge Information *PRESCRIPTION DRUG MONITORING PROGRAM REVIEWED*: Yes *COPY OF PRESCRIPTION DRUG MONITORING REPORT IN PATIENT CHADD: No - My Orders Last 24 Hours: My Active Orders 12/28/17 06:36 Abdomen Pelvis w Cont [CT] Stat - Assessment/Plan Last 24 Hours: My Active Orders 12/28/17 06:36 Abdomen Pelvis w Cont [CT] Stat
[2017-12-28] MEDS ORDERED: Sodium Chloride 0.9% 1,000 ML IV SCH ×2 (05:30→08:15)
[2017-12-28] MEDS ORDERED: Diatrizoate Meglumine/Diatrizoate Sodium 37% 120 ML Bottle PO ONE (07:05)
[2017-12-28] MEDS ORDERED: Sodium Chloride 0.9% 10 ML Syringe FLUSH PRN (07:05)
[2017-12-28] MEDS ORDERED: Iopamidol 612 MG/ML 150 ML Bottle IVPUSH ONE (07:05)
[2017-12-28] MEDS ORDERED: Heparin Sodium 5,000 Units/ML Vial IVPUSH ONE (10:27)
[2017-12-28] MEDS ORDERED: Heparin Sodium/D5W 25,000 UNITS/500 ML BAG IV SCH (10:30)
[2017-12-28] MEDS ORDERED: fentaNYL 100 MCG/2 ML SDV IVPUSH ONE (10:31)
--- NOTE | 2017-12-31 08:57 | CR ---
Abdomen: Supine view of the abdomen was obtained. Comparison: No prior abdominal x-ray. Slight degenerative changes is scattered within the spine with minimal scoliosis. Degenerative change is also noted within both hips. Slight vascular calcification is noted. No discrete soft tissue finding is seen. Impression: 1. Incidental findings. Diagnostic code #2
--- NOTE | 2018-01-04 13:19 | CT ---
CT abdomen and pelvis Technique: Multiple axial sections were obtained from above the dome of the diaphragm inferiorly through the pubic symphysis. Intravenous and oral contrast was utilized. Delayed images were also obtained through the abdomen and pelvis. Comparison: No prior abdominal CT exam. Findings: Visualized lung bases show a partially visualized nodule within the right lung base measuring 5 mm. Slight areas of scarring and atelectasis is seen within the left lung base. Circumferential wall thickening noted within the distal esophagus raises the possibility of esophagitis. Liver shows no focal parenchymal abnormality. Nonenhanced enhancing lesion identified within the anterior spleen most likely representing splenic infarct measuring about 7.0 cm in greatest dimension which is cranial caudal. No fluid is seen around the spleen. Left adrenal gland shows a small nodule measuring 1.1 cm which is likely incidental.. Pancreas shows no discrete abnormality. Gallbladder contains no calcified gallstones. Kidneys show symmetric contrast enhancement without hydronephrosis or mass. Aorta shows atherosclerotic change which continues into the iliac vessels. No retroperitoneal adenopathy or mesenteric abnormalities are seen. No pelvic mass or adenopathy is identified. Delayed images show contrast throughout both ureters as well as within the bladder. No change in enhancement pattern seen within the spleen. Bone window settings show scattered degenerative change within the spine. Small fat-containing umbilical hernia is noted. Impression: 1. Low density finding within the spleen most likely representing splenic infarct. Etiology for this finding is not seen and this may represent an embolic event. 2. Circumferential wall thickening within the distal esophagus suggesting esophagitis. 3. Nodule within the right lung base. Recommend follow-up chest CT in 9 months. This can be performed without contrast and would occur in Sep, 2018 . 4. Other incidental findings as noted above. Diagnostic code #9 I agree with preliminary report from [facility], finalized at 12/28/17, 10:22 AM Central Time [facility]
== END 2017-12-28 11:30 ==
LOC: JD.ED 05:04
DX: D73.5 Infarction of spleen (principal); E11.9 Type 2 diabetes mellitus without complications; Z79.899 Other long term (current) drug therapy
CPT/HCPCS: 36415; 74018; 74177; 80053; 81001; 82962; 83036; 83605; 83690; 83735; 85007; 85027; 85610; 85730; 86140; 87040; 93005; 96361; 96365; 96375; 96376; 99285; J1170; J1644; J2765; J3010; J7040; J7050; Q9963; Q9967

== ENCOUNTER 2018-08-16 07:03 | Emergency (ER) | payer MEDICARE, MEDICAID ==
[2018-08-16 07:30] VITALS: BP 126/76
--- NOTE | 2018-08-16 07:45 | EDM.PDOC ---
ED HPI GENERAL MEDICAL PROBLEM - General Chief Complaint: Headache Stated Complaint: JAW AND EAR PAIN HEADACHE Time Seen by Provider: 08/16/18 07:35 - History of Present Illness INITIAL COMMENTS - FREE TEXT/NARRATIVE: 58-year-old female presents emergency room with left-sided jaw pain This was relatively sudden onset awoke her from sleep. At 3:00 this morning everything was perfectly normal. The pain seems to radiate into her neck and jaw and below her ear. She has not had any congestion fevers or chills. She's taken oxycodone 10 and Tylenol with no improvement. Patient has no history of coronary artery disease. She had a heart murmur as a child. However has a strong family history both her mother and father side with heart attacks and heart failure. Left Jaw Pain Score (Numeric/FACES): 10 Left Headache Pain Score (Numeric/FACES): 9 - Related Data Allergies Allergy/AdvReac Type Severity Reaction Status Date / Time diltiazem Allergy Facial Verified 12/28/17 05:11 Swelling gabapentin Allergy Hives Verified 08/16/18 07:19 Home Meds: Home Meds ALPRAZolam [Xanax] 2 mg PO BEDTIME 07/21/15 [History] oxyCODONE HCl [Oxycodone HCl] 10 mg PO BID 12/16/16 [History] Fluticasone/Vilanterol [Breo Ellipta 100-25 MCG Inhalation Kit] 1 each IH DAILY 03/14/18 [History] Baclofen 5 mg PO TID PRN 08/16/18 [History] Hydrocodone/Acetaminophen [Hydrocodon-Acetaminophen 5-325] 1 each PO Q4H PRN # 10 tablet 08/16/18 [Rx] Ranitidine [Zantac] 300 mg PO DAILY 08/16/18 [History] atorvaSTATin Calcium [Lipitor] 0 mg PO DAILY 08/16/18 [History] metFORMIN [Glucophage] 1,000 mg PO BID 08/16/18 [History] Past Medical History HEENT History: Reports: Impaired Vision Other HEENT History: Wears glasses Cardiovascular History: Reports: Blood Clots/VTE/DVT, High Cholesterol Respiratory History: Reports: Pneumonia, Recurrent 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: Musculoskeletal History: Reports: Back Pain, Chronic, Fracture Psychiatric History: Reports: Anxiety Endocrine/Metabolic History: Reports: Diabetes, Type II - Infectious Disease History Infectious Disease History: Reports: Chicken Pox, Measles - Past Surgical History GI Surgical History: Reports: Colonoscopy Female Surgical History: Reports: D&C Social & Family History - Family History Family Medical History: Noncontributory - Caffeine Use Caffeine Use: Reports: Coffee - Living Situation & Occupation Living situation: Reports: , Single Occupation: Disabled ED ROS GENERAL - Review of Systems Review Of Systems: See Below Constitutional: Denies: Fever, Chills HEENT: Reports: Ear Pain, Other (Associated jaw pain and pain around her TMJ) Respiratory: Reports: No Symptoms Cardiovascular: Reports: Other (It is unclear to me what the etiology is for this jaw pain she's getting ). Denies: Chest Pain GI/Abdominal: Reports: No Symptoms : Reports: No Symptoms Neurological: Reports: No Symptoms - Physical Exam Exam: See Below Exam Limited By: No Limitations General Appearance: Alert, No Apparent Distress Eye Exam: Bilateral Eye: Normal Inspection Ears: Normal External Exam, Normal Canal, Hearing Grossly Normal, Normal TMs Nose: Normal Inspection Throat/Mouth: Normal Inspection, Normal Lips, Other (His dentures on the top these were removed palpation of the parotid gland is unrevealing and other glands is unrevealing palpation of her neck has some tenderness behind and below the TMJ blood pressure none doesn't necessarily make it worse opening her jaw may make it worse) Head Exam: Atraumatic, Normocephalic Neck: No: Lymphadenopathy (L), Lymphadenopathy (R) Respiratory/Chest: No Respiratory Distress, Lungs Clear, Normal Breath Sounds Cardiovascular: Regular Rate, Rhythm, No Edema, No Murmur GI/Abdominal: Normal Bowel Sounds, Soft, Non-Tender Course - Vital Signs Last Recorded V/S: Last Vital Signs Temp 35.9 C 08/16/18 07:15 Pulse 66 08/16/18 07:15 Resp 16 08/16/18 07:15 BP 126/76 08/16/18 07:15 Pulse Ox 96 08/16/18 07:15 - Orders/Labs/Meds Orders: Active Orders 24 hr Category Date Time Status EKG Documentation Completion [RC] ASDIRECTED Care 08/16/18 07:48 Active EKG 12 Lead [EK] Stat Ther 08/16/18 07:47 Ordered Labs: Laboratory Tests 08/16/18 08/16/18 08/16/18 Range/Units 07:56 07:56 07:56 WBC 8.85 (3.98-10.04) K/mm3 RBC 4.52 (3.98-5.22) M/mm3 Hgb 13.8 (11.2-15.7) gm/L Hct 40.3 (34.1-44.9) % MCV 89.2 (79.4-94.8) fl MCH 30.5 (25.6-32.2) pg MCHC 34.2 (32.2-35.5) g/dl RDW Std Deviation 42.0 (36.4-46.3) fL Plt Count 249 (182-369) K/mm3 MPV 9.3 L (9.4-12.3) fl Neutrophils % (Manual) 41 (40-60) % Band Neutrophils % 0 (0-10) % Lymphocytes % (Manual) 53 H (20-40) % Atypical Lymphs % 0 % Monocytes % (Manual) 3 (2-10) % Eosinophils % (Manual) 1 (0.7-5.8) % Basophils % (Manual) 2 H (0.1-1.2) Platelet Estimate Adequate RBC Morph Comment Normal ESR 14 (0-20) mm/hr Sodium 139 (136-145) mEq/L Potassium 4.2 (3.5-5.1) mEq/L Chloride 103 (98-107) mEq/L Carbon Dioxide 25 (21-32) mEq/L Anion Gap 15.2 H (5-15) BUN 17 (7-18) mg/dL Creatinine 0.9 (0.55-1.02) mg/dL Est Cr Clr Drug Dosing 69.47 mL/min Estimated GFR (MDRD) > 60 (>60) mL/min BUN/Creatinine Ratio 18.9 H (14-18) Glucose 208 H (74-106) mg/dL Calcium 8.7 (8.5-10.1) mg/dL Total Bilirubin 0.4 (0.2-1.0) mg/dL AST 14 L (15-37) U/L ALT 27 (14-59) U/L Alkaline Phosphatase 111 (46-116) U/L Troponin I < 0.017 (0.00-0.056) ng/mL C-Reactive Protein < 0.2 (<1.0) mg/dL Total Protein 6.9 (6.4-8.2) g/dl Albumin 3.7 (3.4-5.0) g/dl Globulin 3.2 gm/dL Albumin/Globulin Ratio 1.2 (1-2) - Re-Assessments/Exams Free Text/Narrative Re-Assessment/Exam: 08/16/18 10:10 Laboratory evaluation unrevealing except her blood sugars a little high and that ongoing problem for her. Troponins negative EKG shows no acute changes. Her pain now seems to be coming more from the TMJ area radiating up the side of her head bacteria ear and into her jaw I'm wondering if perhaps she slept on this wrong. We'll give her a few hydrocodone he is not supposed to use nonsteroidals because of her hematologic condition. Departure - Departure Time of Disposition: 10:11 Disposition: Home, Self-Care 01 Clinical Impression: TMJ (sprain of temporomandibular joint) - Discharge Information Prescriptions: Hydrocodone/Acetaminophen [Hydrocodon-Acetaminophen 5-325] 1 each PO Q4H PRN # 10 tablet PRN Reason: Pain Referrals: Shannan Jeffers PA-C [Primary Care Provider] - Forms: ED Department Discharge Additional Instructions: Return to the emergency room with any questions problems worsening symptoms. Follow-up in the clinic in a couple of days if needed. Use the hydrocodone the next few days for discomfort. - My Orders Last 24 Hours: My Active Orders 08/16/18 07:47 EKG 12 Lead [EK] Stat 08/16/18 07:48 EKG Documentation Completion [RC] ASDIRECTED - Assessment/Plan Last 24 Hours: My Active Orders 08/16/18 07:47 EKG 12 Lead [EK] Stat 08/16/18 07:48 EKG Documentation Completion [RC] ASDIRECTED
[2018-08-16] MEDS ORDERED: Acetaminophen/HYDROcodone 325-5 MG Tab PO ONE (10:17)
== END 2018-08-16 10:40 | disposition home or self-care (01) ==
LOC: JD.ED 07:03
DX: M26.622 Arthralgia of left temporomandibular joint (principal); E11.9 Type 2 diabetes mellitus without complications; F41.9 Anxiety disorder, unspecified; E78.00 Pure hypercholesterolemia, unspecified; Z79.84 Long term (current) use of oral hypoglycemic drugs; Z88.8 Allergy status to other drugs, medicaments and biological substances; Z79.899 Other long term (current) drug therapy
CPT/HCPCS: 36415; 80053; 84484; 85007; 85027; 85652; 86140; 93005; 99283; A9270; 93010

== ENCOUNTER 2019-03-12 11:07 | Emergency (ER) | payer MEDICARE, MEDICAID ==
[2019-03-12 11:15] VITALS: BP 124/69; PULSE 74
[2019-03-12] MEDS ORDERED: Sodium Chloride 0.9% 10 ML Syringe FLUSH PRN (11:16)
[2019-03-12] MEDS ORDERED: HYDROmorphone 1 MG/ML Syringe IVPUSH ONE ×2 (11:16→13:00)
--- NOTE | 2019-03-12 12:29 | CR ---
Addendum: Previous report mentions nondisplaced medial malleolus fracture which is obviously incorrect. This should be nondisplaced medial tibial plateau fracture. --- Addendum1 above dictated on [03/14/2019 10:26] by [Rivera Joyce, Fly Sanders] --- --- Addendum1 above signed on [03/14/2019 10:33] by [Rivera Joyce, Fly Sanders] --- --- Original report below dictated on [03/12/2019 12:26] by [Rivera Joyce, Fly Sanders] --- --- Original report below signed on [03/12/2019 12:26] by [Rivera Joyce, Fly Sanders] --- Right knee: 4 views of the right knee were obtained. Comparison: No previous knee exam. Lucent line is identified on the lateral view compatible with fracture which is felt to be within the medial tibial plateau. No displacement is seen. Mild joint space narrowing is noted within the medial knee. Fat fluid level is noted within the suprapatellar pouch. No additional abnormality is identified. Impression: 1. Nondisplaced medial malleolus fracture is felt to be present. 2. Fat/fluid level within the suprapatellar pouch. 3. Mild medial joint space narrowing. Diagnostic code #3 --- Addendum1 signed ---
[2019-03-12] MEDS ORDERED: Ketorolac 30 MG/ML SDV IVPUSH ONE (13:00)
--- NOTE | 2019-03-12 13:10 | EDM.PDOC ---
ED HPI GENERAL MEDICAL PROBLEM - General Chief Complaint: Lower Extremity Injury/Pain Stated Complaint: [facility] Time Seen by Provider: 03/12/19 11:15 Source of Information: Reports: Patient, EMS History Limitations: Reports: No Limitations - History of Present Illness INITIAL COMMENTS - FREE TEXT/NARRATIVE: The patient presents by [facility] for a fall and right hip and knee pain. She said she was walking in her kitchen and her right leg gave out and she fell. She says she has been having trouble with falling lately. She has been seeing her doctors and they have an event monitor on her. She had no LOC. She has no headache, neck pain, chest pain, shortness of breath, or abdominal pain. She has an IV and she was given some fentanyl by EMS. Onset: Sudden Duration: Minutes: Location: Reports: Lower Extremity, Right (Knee and hip) Quality: Reports: Sharp Severity: Severe Improves with: Reports: Immobilization Worsens with: Reports: Movement Context: Reports: Trauma (Her leg gave out and she fell) Associated Symptoms: Reports: No Other Symptoms Right Hip Pain Score (Numeric/FACES): 7 - Related Data Allergies Allergy/AdvReac Type Severity Reaction Status Date / Time diltiazem Allergy Facial Verified 03/12/19 11:15 Swelling gabapentin Allergy Hives Verified 03/12/19 11:15 Home Meds: Home Meds ALPRAZolam [Xanax] 2 mg PO BEDTIME 07/21/15 [History] oxyCODONE HCl [Oxycodone HCl] 10 mg PO BID 12/16/16 [History] Fluticasone/Vilanterol [Breo Ellipta 100-25 MCG Inhalation Kit] 1 each IH DAILY 03/14/18 [History] atorvaSTATin Calcium [Lipitor] 20 mg PO DAILY 08/16/18 [History] Aspirin 81 mg PO DAILY 03/12/19 [History] Furosemide [Lasix] 20 mg PO DAILY 03/12/19 [History] oxyCODONE ER [OxyCONTIN] 10 mg PO Q12H PRN #20 tab.er 03/12/19 [Rx] Past Medical History HEENT History: Reports: Impaired Vision Other HEENT History: Wears glasses Cardiovascular History: Reports: Blood Clots/VTE/DVT, High Cholesterol Respiratory History: Reports: Pneumonia, Recurrent 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: Musculoskeletal History: Reports: Back Pain, Chronic, Fracture Neurological History: Reports: Migraines Psychiatric History: Reports: Anxiety Endocrine/Metabolic History: Reports: Diabetes, Type II, Obesity/BMI 30+ Hematologic History: Reports: None Immunologic History: Reports: None Oncologic (Cancer) History: Reports: None Dermatologic History: Reports: None - Infectious Disease History Infectious Disease History: Reports: Chicken Pox, Measles - Past Surgical History Head Surgeries/Procedures: Reports: None GI Surgical History: Reports: Colonoscopy Female Surgical History: Reports: D&C Neurological Surgical History: Reports: Lumbar Spine Social & Family History - Family History Family Medical History: Noncontributory - Tobacco Use Smoking Status *Q: Former Smoker Used Tobacco, but Quit: Yes Month/Year Tobacco Last Used: 12/26 - Caffeine Use Caffeine Use: Reports: Soda - Recreational Drug Use Recreational Drug Use: No - Living Situation & Occupation Living situation: Reports: , Single Occupation: Disabled Review of Systems - Review of Systems Review Of Systems: See Below Constitutional: Reports: No Symptoms Eyes: Reports: No Symptoms Ears: Reports: No Symptoms Nose: Reports: No Symptoms Mouth/Throat: Reports: No Symptoms Respiratory: Reports: No Symptoms Cardiovascular: Reports: No Symptoms GI/Abdominal: Reports: No Symptoms Genitourinary: Reports: No Symptoms Musculoskeletal: Reports: Other (Right knee and hip pain) ED EXAM, GENERAL - Physical Exam Exam: See Below Exam Limited By: No Limitations General Appearance: Alert, No Apparent Distress Ears: Normal External Exam Nose: Normal Inspection Head: Atraumatic, Normocephalic Neck: Normal Inspection, Supple, Non-Tender Respiratory/Chest: No Respiratory Distress, Lungs Clear, Normal Breath Sounds Cardiovascular: Regular Rate, Rhythm, No Edema, No Murmur GI/Abdominal: Soft, Non-Tender, No Organomegaly, No Mass Back Exam: Normal Inspection Extremities: Other (Pain upon palpation to the right hip and pain upon palpation to the right knee with edema. Good sensation and pulses distally.) Course - Vital Signs Last Recorded V/S: Last Vital Signs Temp 96.9 F 03/12/19 11:11 Pulse 74 03/12/19 11:11 Resp 16 03/12/19 11:11 BP 124/69 03/12/19 11:11 Pulse Ox 94 L 03/12/19 11:11 - Orders/Labs/Meds Orders: Active Orders 24 hr Category Date Time Status Peripheral IV Care [RC] . DIRECTED Care 03/12/19 11:16 Active Hip Min 2V or 3V w Pelvis Rt [CR] Stat Exams 03/12/19 11:16 Taken Sodium Chloride 0.9% [Saline Flush] Med 03/12/19 11:16 Active 10 ml FLUSH ASDIRECTED PRN Durable Medical Equipment for Discharge [DME for Oth 03/12/19 13:01 Ordered Discharge] [COMM] Stat Peripheral IV Insertion Adult [OM.PC] Routine Oth 03/12/19 11:16 Ordered Medication Orders Sodium Chloride (Saline Flush) 10 ml FLUSH ASDIRECTED PRN PRN Reason: Keep Vein Open Last Admin: 03/12/19 11:26 Dose: 10 ml Labs: Laboratory Tests 03/12/19 Range/Units 12:03 POC Glucose 126 H (70-105) mg/dL Meds: Medications Generic Name Dose Route Start Last Admin Trade Name Freq PRN Reason Stop Dose Admin Sodium Chloride 10 ml 03/12/19 11:16 03/12/19 11:26 Saline Flush FLUSH 10 ml ASDIRECTED PRN Administration Keep Vein Open Discontinued Medications Generic Name Dose Route Start Last Admin Trade Name Freq PRN Reason Stop Dose Admin Hydromorphone HCl 1 mg 03/12/19 11:16 03/12/19 11:25 Dilaudid IVPUSH 03/12/19 11:17 1 mg ONETIME ONE Administration Hydromorphone HCl 1 mg 03/12/19 13:00 Dilaudid IVPUSH 03/12/19 13:01 ONETIME ONE Ketorolac Tromethamine 30 mg 03/12/19 13:00 Toradol IVPUSH 03/12/19 13:01 ONETIME ONE - Re-Assessments/Exams Free Text/Narrative Re-Assessment/Exam: 03/12/19 13:06 I ordered an IV saline lock, dilaudid 1mg IV, and an x-ray of her right hip with pelvis and right knee. The x-ray of her right hip and pelvis shows no fracture. The x-ray of her knee as read by Dr Joyce shows lucent line is identified on the lateral view compatible with fracture which is felt to be within the medial tibial plateau. No displacement is seen. Mild joint space narrowing is noted within the medial knee. She can lift her leg off of the bed. I will get her a knee immobilizer and crutches. She still has pain so I ordered dilaudid 1mg IV and toradol 30mg IV. I will have her follow up with Dr Bloom. Departure - Departure Time of Disposition: 13:10 Disposition: Home, Self-Care 01 Condition: Good Clinical Impression: Fall Qualifiers: Encounter type: initial encounter Qualified Code(s): W19.XXXA - Unspecified fall, initial encounter Right medial tibial plateau fracture Qualifiers: Encounter type: initial encounter Fracture type: closed Qualified Code(s): S82.131A - Displaced fracture of medial condyle of right tibia, initial encounter for closed fracture - Discharge Information *PRESCRIPTION DRUG MONITORING PROGRAM REVIEWED*: No *COPY OF PRESCRIPTION DRUG MONITORING REPORT IN PATIENT CHADD: No Prescriptions: oxyCODONE ER [OxyCONTIN] 10 mg PO Q12H PRN #20 tab.er PRN Reason: Pain Referrals: Shannan Jeffers PA-C [Primary Care Provider] - Aric Bloom MD [Physician] - 1 Week Additional Instructions: Ice your knee for 15 minutes 5 times per day for 2 days. Try to elevate your leg to reduce swelling. Wear the knee immobilizer and use the crutches to stay non weight bearing off of that leg. Follow up with Dr Bloom within a week. Please return if you are worse. - My Orders Last 24 Hours: My Active Orders 03/12/19 11:16 Peripheral IV Care [RC] . DIRECTED Hip Min 2V or 3V w Pelvis Rt [CR] Stat Sodium Chloride 0.9% [Saline Flush] 10 ml FLUSH ASDIRECTED PRN Peripheral IV Insertion Adult [OM.PC] Routine 03/12/19 13:01 Durable Medical Equipment for Discharge [DME for Discharge] [COMM] Stat - Assessment/Plan Last 24 Hours: My Active Orders 03/12/19 11:16 Peripheral IV Care [RC] . DIRECTED Hip Min 2V or 3V w Pelvis Rt [CR] Stat Sodium Chloride 0.9% [Saline Flush] 10 ml FLUSH ASDIRECTED PRN Peripheral IV Insertion Adult [OM.PC] Routine 03/12/19 13:01 Durable Medical Equipment for Discharge [DME for Discharge] [COMM] Stat
--- NOTE | 2019-03-13 13:51 | CR ---
Pelvis and right hip: AP view of the pelvis was obtained as well as AP and frog-leg lateral views of the right hip. Comparison: Prior pelvis study of 07/21/15 is available. Joint space narrowing is noted within both hips, similar on the right side from prior exam and increased in prominence within the left hip from prior exam. Degenerative change is partially visualized within the lower lumbar spine. Bony structures are osteopenic. No acute fracture or dislocation is seen. Impression: 1. Degenerative change as described above. 2. Osteopenia. 3. Nothing acute is appreciated on AP pelvis or on two-view right hip exam. Diagnostic code #2
== END 2019-03-12 13:48 | disposition home or self-care (01) ==
LOC: JD.ED 11:07
DX: S82.131A Displaced fracture of medial condyle of right tibia, initial encounter for closed fracture (principal); E78.00 Pure hypercholesterolemia, unspecified; E11.9 Type 2 diabetes mellitus without complications; F41.9 Anxiety disorder, unspecified; E66.9 Obesity, unspecified; Z68.31 Body mass index [BMI] 31.0-31.9, adult; Z87.891 Personal history of nicotine dependence; Z79.82 Long term (current) use of aspirin; Z79.899 Other long term (current) drug therapy; Z88.8 Allergy status to other drugs, medicaments and biological substances; W19.XXXA Unspecified fall, initial encounter; Y93.01 Activity, walking, marching and hiking; Y92.000 Kitchen of unspecified non-institutional (private) residence as the place of occurrence of the external cause
CPT/HCPCS: 73502; 73564; 82962; 96374; 96375; 96376; 99284; J1170; J1885; 99283

== ENCOUNTER 2019-09-16 12:59 | Emergency (ER) | payer MEDICARE, MEDICAID ==
[2019-09-16] MEDS ORDERED: Sodium Chloride 0.9% 10 ML Syringe FLUSH PRN (13:31)
[2019-09-16] MEDS ORDERED: Ondansetron 4 MG/2 ML SDV IVPUSH ONE (13:32)
--- NOTE | 2019-09-16 13:37 | EDM.PDOC ---
ED HPI GENERAL MEDICAL PROBLEM - General Chief Complaint: Gastrointestinal Problem Stated Complaint: NAUSEA/DIARRHEA/CHILLS Time Seen by Provider: 09/16/19 13:11 Source of Information: Reports: Patient History Limitations: Reports: No Limitations - History of Present Illness INITIAL COMMENTS - FREE TEXT/NARRATIVE: Patient is a 59-year-old female who presents with complaints of nausea and diarrhea since Thursday of this week. She states that she has had some watery diarrhea, but that this morning she did have a semi-formed bowel movement; however, she did have a loose stool again thereafter. She has had some associated nausea, however has not had vomiting. She does complain of intermittent chills followed by feeling warm. She is had no known fevers. She denies any known sick contacts. States that she has been in her house for months due to recovering from a broken leg. She did go out on Thursday however. She denies any associated abdominal pain. When asked if she may have eaten anything questionable, she states that she cannot remember what she ate on Thursday or Thursday. Abdominal Pain Score (Numeric/FACES): 5 - Related Data Allergies Allergy/AdvReac Type Severity Reaction Status Date / Time diltiazem Allergy Severe Facial Verified 09/16/19 13:18 Swelling gabapentin Allergy Severe Hives Verified 09/16/19 13:18 Home Meds: Home Meds ALPRAZolam [Xanax] 2 mg PO BEDTIME 07/21/15 [History] oxyCODONE HCl [Oxycodone HCl] 10 mg PO BID 12/16/16 [History] Fluticasone/Vilanterol [Breo Ellipta 100-25 MCG Inhalation Kit] 1 each IH DAILY 03/14/18 [History] atorvaSTATin Calcium [Lipitor] 20 mg PO DAILY 08/16/18 [History] Aspirin 81 mg PO DAILY 03/12/19 [History] Furosemide [Lasix] 20 mg PO DAILY 03/12/19 [History] oxyCODONE ER [OxyCONTIN] 10 mg PO Q12H PRN #20 tab.er 03/12/19 [Rx] Ondansetron [Zofran ODT] 4 mg PO Q6H PRN #10 tab.dis 09/16/19 [Rx] Past Medical History HEENT History: Reports: Impaired Vision Other HEENT History: Wears glasses Cardiovascular History: Reports: Blood Clots/VTE/DVT, High Cholesterol Respiratory History: Reports: Pneumonia, Recurrent 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: Musculoskeletal History: Reports: Back Pain, Chronic, Fracture Neurological History: Reports: Migraines Psychiatric History: Reports: Anxiety Endocrine/Metabolic History: Reports: Diabetes, Type II, Obesity/BMI 30+ Hematologic History: Reports: None Immunologic History: Reports: None Oncologic (Cancer) History: Reports: None Dermatologic History: Reports: None - Infectious Disease History Infectious Disease History: Reports: Chicken Pox, Measles - Past Surgical History Head Surgeries/Procedures: Reports: None GI Surgical History: Reports: Colonoscopy Female Surgical History: Reports: D&C Neurological Surgical History: Reports: Lumbar Spine Social & Family History - Family History Family Medical History: Noncontributory - Tobacco Use Smoking Status *Q: Former Smoker Used Tobacco, but Quit: Yes Month/Year Tobacco Last Used: september 2018 - Caffeine Use Caffeine Use: Reports: None - Recreational Drug Use Recreational Drug Use: No - Living Situation & Occupation Living situation: Reports: , Single Occupation: Disabled ED ROS GENERAL - Review of Systems Review Of Systems: See Below Constitutional: Reports: Chills, Weakness, Decreased Appetite. Denies: Fever HEENT: Reports: No Symptoms Respiratory: Reports: No Symptoms. Denies: Shortness of Breath, Cough Cardiovascular: Reports: No Symptoms. Denies: Chest Pain, Palpitations Endocrine: Reports: No Symptoms GI/Abdominal: Reports: Diarrhea, Decreased Appetite, Nausea. Denies: Abdominal Pain, Black Stool, Bloody Stool, Vomiting : Reports: No Symptoms. Denies: Discharge, Dysuria Musculoskeletal: Reports: No Symptoms Skin: Reports: No Symptoms Neurological: Reports: No Symptoms ED EXAM, GI/ABD - Physical Exam Exam: See Below Exam Limited By: No Limitations General Appearance: Alert, WD/WN, No Apparent Distress Respiratory/Chest: No Respiratory Distress, Lungs Clear, Normal Breath Sounds, No Accessory Muscle Use, Chest Non-Tender Cardiovascular: Normal Peripheral Pulses, Regular Rate, Rhythm, No Edema, No Gallop, No JVD, No Murmur, No Rub GI/Abdominal Exam: Soft, Non-Tender, No Organomegaly, No Distention, No Abnormal Bruit, No Mass, Pelvis Stable, Abnormal Bowel Sounds (Hyperactive throughout). No: Guarding, Rigid, Rebound Back Exam: Normal Inspection, Full Range of Motion, NT Extremities: Normal Inspection, Normal Range of Motion, Non-Tender, Normal Capillary Refill, No Pedal Edema Neurological: Alert, Oriented, CN II-XII Intact, Normal Cognition, Normal Gait, Normal Reflexes, No Motor/Sensory Deficits Psychiatric: Normal Affect, Normal Mood Skin Exam: Warm, Dry, Intact, Normal Color, No Rash Course - Vital Signs Last Recorded V/S: Last Vital Signs Temp 96.9 F 09/16/19 13:08 Pulse 90 09/16/19 13:08 Resp 16 09/16/19 13:08 BP 133/86 09/16/19 13:08 Pulse Ox 97 09/16/19 13:08 - Orders/Labs/Meds Orders: Active Orders 24 hr Category Date Time Status Peripheral IV Care [RC] . DIRECTED Care 09/16/19 13:31 Active C DIFFICILE PCR W/REFLEX [MOLEC] Routine Lab 09/16/19 14:20 Ordered CULTURE STOOL + SHIGATOX [RM] Stat Lab 09/16/19 13:37 Ordered WBC, STOOL [OP] Stat Lab 09/16/19 13:37 Ordered Sodium Chloride 0.9% [Normal Saline] 1,000 ml Med 09/16/19 13:45 Active IV ASDIRECTED Sodium Chloride 0.9% [Saline Flush] Med 09/16/19 13:31 Active 10 ml FLUSH ASDIRECTED PRN Peripheral IV Insertion Adult [OM.PC] Stat Oth 09/16/19 13:31 Ordered Medication Orders Sodium Chloride (Normal Saline) 1,000 mls @ 999 mls/hr IV ASDIRECTED DANNY Last Admin: 09/16/19 13:59 Dose: 999 mls/hr Sodium Chloride (Saline Flush) 10 ml FLUSH ASDIRECTED PRN PRN Reason: Keep Vein Open Last Admin: 09/16/19 13:59 Dose: 10 ml Labs: Laboratory Tests 09/16/19 09/16/19 09/16/19 Range/Units 13:50 13:50 13:50 WBC 11.26 H (3.98-10.04) K/mm3 RBC 5.13 (3.98-5.22) M/mm3 Hgb 15.9 H D (11.2-15.7) gm/dl Hct 47.2 H (34.1-44.9) % MCV 92.0 D (79.4-94.8) fl MCH 31.0 (25.6-32.2) pg MCHC 33.7 (32.2-35.5) g/dl RDW Std Deviation 47.0 H (36.4-46.3) fL Plt Count 304 (182-369) K/mm3 MPV 9.5 (9.4-12.3) fl Neut % (Auto) 62.2 (34.0-71.1) % Lymph % (Auto) 30.8 (19.3-51.7) % [place] % (Auto) 6.0 (4.7-12.5) % Eos % (Auto) 0.4 L (0.7-5.8) Baso % (Auto) 0.3 (0.1-1.2) % Neut # (Auto) 7.02 H (1.56-6.13) K/mm3 Lymph # (Auto) 3.47 (1.18-3.74) K/mm3 [place] # (Auto) 0.67 H (0.24-0.36) K/mm3 Eos # (Auto) 0.04 (0.04-0.36) K/mm3 Baso # (Auto) 0.03 (0.01-0.08) K/mm3 Sodium 143 (136-145) mEq/L Potassium 3.9 (3.5-5.1) mEq/L Chloride 105 (98-107) mEq/L Carbon Dioxide 29 (21-32) mEq/L Anion Gap 12.9 (5-15) BUN 20 H (7-18) mg/dL Creatinine 0.8 (0.55-1.02) mg/dL Est Cr Clr Drug Dosing 78.52 mL/min Estimated GFR (MDRD) > 60 (>60) mL/min BUN/Creatinine Ratio 25.0 H (14-18) Glucose 123 H (80-115) mg/dL Calcium 9.6 (8.5-10.1) mg/dL Magnesium 1.9 (1.8-2.4) mg/dl Total Bilirubin 0.6 (0.2-1.0) mg/dL AST 13 L (15-37) U/L ALT 32 (14-59) U/L Alkaline Phosphatase 106 (46-116) U/L C-Reactive Protein <0.2 (<1.0) mg/dL Total Protein 8.2 (6.4-8.2) g/dl Albumin 4.4 (3.4-5.0) g/dl Globulin 3.8 gm/dL Albumin/Globulin Ratio 1.2 (1-2) Lipase 82 (73-393) U/L Urine Color Yellow (Yellow) Urine Appearance Clear (Clear) Urine pH 5.5 (5.0-8.0) Ur Specific [place] 1.025 (1.005-1.030) Urine Protein Negative (Negative) Urine Glucose (UA) 2+ H (Negative) Urine Ketones Negative (Negative) Urine Occult Blood Negative (Negative) Urine Nitrite Negative (Negative) Urine Bilirubin Negative (Negative) Urine Urobilinogen 0.2 (0.2-1.0) Ur Leukocyte Esterase Negative (Negative) Urine RBC 0-5 (0-5) /hpf Urine WBC 0-5 (0-5) /hpf Ur Epithelial Cells 0-5 (0-5) /hpf Urine Bacteria Few (FEW) /hpf Urine Mucus Not seen (FEW) /hpf Meds: Medications Generic Name Dose Route Start Last Admin Trade Name Freq PRN Reason Stop Dose Admin Sodium Chloride 1,000 mls @ 999 mls/hr 09/16/19 13:45 09/16/19 13:59 Normal Saline IV 999 mls/hr ASDIRECTED DANNY Administration Sodium Chloride 10 ml 09/16/19 13:31 09/16/19 13:59 Saline Flush FLUSH 10 ml ASDIRECTED PRN Administration Keep Vein Open Discontinued Medications Generic Name Dose Route Start Last Admin Trade Name Freq PRN Reason Stop Dose Admin Ondansetron HCl 4 mg 09/16/19 13:32 09/16/19 13:59 Zofran IVPUSH 09/16/19 13:33 4 mg ONETIME ONE Administration - Re-Assessments/Exams Free Text/Narrative Re-Assessment/Exam: I have ordered a CBC, CMP, magnesium, CRP, lipase,'s stool WBCs, stool culture, C. difficile, urinalysis. Patient's orthostatic vital signs were positive. Heart rate went from 78 lying to 103 standing. I will give her a 1 L bolus of normal saline as well as Zofran 4 mg IV now. She has no abdominal pain or tenderness, therefore I do not feel that imaging is warranted at this time. 09/16/19 15:15 Patient's work-up was found to be grossly unremarkable, with the exception of a slightly elevated hemoglobin and WBC indicating that she is likely hemoconcentrated. Urinalysis was normal, kidney and liver function were normal. Electrolytes were normal. She did receive a liter of normal saline as well as Zofran IV. She has been able to drink Powerade without vomiting however , she does still feel nauseous. Patient has not been able to provide a stool sample while she is here. We will send her home with a stool collection kit to return a specimen for analysis when she is able to go. I will send a prescription for Zofran and recommendation for clear liquid diet for the next 24 to 48 hours and then advance as tolerated. She states that she has not had a follow-up with her primary care provider in quite a while and that she is due for diabetes follow-up. I will recommend that she schedule a follow-up appointment for next week with her primary, Dr. Florez. Discussed that if her symptoms should worsen, she should return to the emergency department. Departure - Departure Time of Disposition: 15:15 Disposition: Home, Self-Care 01 Condition: Good Clinical Impression: Diarrhea, Nausea - Discharge Information *PRESCRIPTION DRUG MONITORING PROGRAM REVIEWED*: No *COPY OF PRESCRIPTION DRUG MONITORING REPORT IN PATIENT CHADD: No Prescriptions: Ondansetron [Zofran ODT] 4 mg PO Q6H PRN #10 tab.dis PRN Reason: Nausea/Vomiting Instructions: Nausea, Adult, Diarrhea, Adult, Viral Gastroenteritis, Adult, [id number] Referrals: Ruben Whyte MD [Primary Care Provider] - Forms: ED Department Discharge Additional Instructions: You were seen in the emergency department today for diarrhea and nausea since Thursday. Your work-up included blood work and urinalysis. This work-up was found to be overall normal. Based on your exam and symptoms, I feel it is likely you are suffering from a viral gastroenteritis; however, I would like to complete stool studies as well. You have been sent home with a collection kit. When you do have a bowel movement, please return a sample to the lab for processing. You will be notified if anything abnormal appears any samples. In the meantime, a prescription for Zofran has been sent to [facility]. Use this medication every 6 hours as needed for nausea. Recommend that you maintain a clear liquid diet for the next 24 to 48 hours and then advance as tolerated. Avoid dairy products and fruit juices until your symptoms have completely resolved. I recommend that you call to schedule follow-up appointment with your primary care provider for early next week. If your symptoms should worsen or you develop any new symptoms of concern, please do not hesitate to return to the emergency department. Sepsis Event Note - Evaluation Sepsis Screening Result: No Definite Risk - Focused Exam Vital Signs: Vital Signs Temp Pulse Resp BP Pulse Ox 09/16/19 13:08 96.9 F 90 16 133/86 97 Date Exam was Performed: 09/16/19 Time Exam was Performed: 16:08 - My Orders Last 24 Hours: My Active Orders 09/16/19 13:31 Peripheral IV Care [RC] . DIRECTED Sodium Chloride 0.9% [Saline Flush] 10 ml FLUSH ASDIRECTED PRN Peripheral IV Insertion Adult [OM.PC] Stat 09/16/19 13:37 CULTURE STOOL + SHIGATOX [RM] Stat WBC, STOOL [OP] Stat 09/16/19 13:45 Sodium Chloride 0.9% [Normal Saline] 1,000 ml IV ASDIRECTED 09/16/19 14:20 C DIFFICILE PCR W/REFLEX [MOLEC] Routine - Assessment/Plan Last 24 Hours: My Active Orders 09/16/19 13:31 Peripheral IV Care [RC] . DIRECTED Sodium Chloride 0.9% [Saline Flush] 10 ml FLUSH ASDIRECTED PRN Peripheral IV Insertion Adult [OM.PC] Stat 09/16/19 13:37 CULTURE STOOL + SHIGATOX [RM] Stat WBC, STOOL [OP] Stat 09/16/19 13:45 Sodium Chloride 0.9% [Normal Saline] 1,000 ml IV ASDIRECTED 09/16/19 14:20 C DIFFICILE PCR W/REFLEX [MOLEC] Routine
[2019-09-16] MEDS ORDERED: Sodium Chloride 0.9% 1,000 ML IV SCH (13:45)
[2019-09-16 17:26] VITALS: BP 130/70; PULSE 70
== END 2019-09-16 16:00 | disposition home or self-care (01) ==
LOC: JD.ED 12:59
DX: R19.7 Diarrhea, unspecified (principal); R11.0 Nausea; E78.00 Pure hypercholesterolemia, unspecified; E11.9 Type 2 diabetes mellitus without complications; F41.9 Anxiety disorder, unspecified; E66.9 Obesity, unspecified; Z79.82 Long term (current) use of aspirin; Z88.8 Allergy status to other drugs, medicaments and biological substances; Z87.891 Personal history of nicotine dependence
CPT/HCPCS: 36415; 80053; 81001; 83690; 83735; 85025; 86140; 96361; 96374; 99284; J2405; J7030; 99283

== ENCOUNTER 2020-07-06 12:29 | Emergency (ER) | payer MEDICARE, MEDICAID ==
[2020-07-06 12:40] VITALS: BP 113/82; PULSE 80
--- NOTE | 2020-07-06 13:09 | EDM.PDOC ---
ED HPI GENERAL MEDICAL PROBLEM - General Chief Complaint: Upper Extremity Injury/Pain Stated Complaint: R HAND INJURY Time Seen by Provider: 07/06/20 12:38 Source of Information: Reports: Patient History Limitations: Reports: No Limitations - History of Present Illness INITIAL COMMENTS - FREE TEXT/NARRATIVE: 60-year-old female presents to the emergency department complaints of right wrist pain. Patient states that on Thursday her right leg gave out as she has a weak knee and she fell forward bracing herself with outstretched arms. She states she did not hear a popping or snapping and immediately put it in an immobilizer brace however it has become more sore and swollen. right hand Pain Score (Numeric/FACES): 5 - Related Data Allergies Allergy/AdvReac Type Severity Reaction Status Date / Time diltiazem Allergy Severe Facial Verified 07/06/20 12:41 Swelling gabapentin Allergy Severe Hives Verified 07/06/20 12:41 Home Meds: Home Meds ALPRAZolam [Xanax] 2 mg PO BEDTIME 07/21/15 [History] oxyCODONE HCl [Oxycodone HCl] 10 mg PO BID 12/16/16 [History] Fluticasone/Vilanterol [Breo Ellipta 100-25 MCG Inhalation Kit] 1 each IH DAILY 03/14/18 [History] atorvaSTATin Calcium [Lipitor] 20 mg PO DAILY 08/16/18 [History] Aspirin 81 mg PO DAILY 03/12/19 [History] Furosemide [Lasix] 20 mg PO DAILY 03/12/19 [History] oxyCODONE ER [OxyCONTIN] 10 mg PO Q12H PRN #20 tab.er 03/12/19 [Rx] Ondansetron [Zofran ODT] 4 mg PO Q6H PRN #10 tab.dis 09/16/19 [Rx] Past Medical History HEENT History: Reports: Impaired Vision Other HEENT History: Wears glasses Cardiovascular History: Reports: Blood Clots/VTE/DVT, High Cholesterol Respiratory History: Reports: Pneumonia, Recurrent 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: Musculoskeletal History: Reports: Back Pain, Chronic, Fracture Neurological History: Reports: Migraines Psychiatric History: Reports: Anxiety Endocrine/Metabolic History: Reports: Diabetes, Type II, Obesity/BMI 30+ Hematologic History: Reports: None Immunologic History: Reports: None Oncologic (Cancer) History: Reports: None Dermatologic History: Reports: None - Infectious Disease History Infectious Disease History: Reports: Chicken Pox, Measles - Past Surgical History Head Surgeries/Procedures: Reports: None GI Surgical History: Reports: Colonoscopy Other GI Surgeries/Procedures: blood clot to spleen. Female Surgical History: Reports: D&C Neurological Surgical History: Reports: Lumbar Spine Musculoskeletal Surgical History: Reports: Other (See Below) Other Musculoskeletal Surgeries/Procedures:: Back surgery Social & Family History - Family History Family Medical History: No Pertinent Family History - Tobacco Use Tobacco Use Status *Q: Never Tobacco User - Caffeine Use Caffeine Use: Reports: None - Recreational Drug Use Recreational Drug Use: No - Living Situation & Occupation Living situation: Reports: , Single Occupation: Disabled Review of Systems - Review of Systems Review Of Systems: Comprehensive ROS is negative, except as noted in HPI. ED EXAM, GENERAL - Physical Exam Exam: See Below Exam Limited By: No Limitations General Appearance: Alert, WD/WN, No Apparent Distress Ears: Hearing Grossly Normal Nose: Normal Inspection Throat/Mouth: Normal Voice, No Airway Compromise Head: Atraumatic, Normocephalic Neck: Normal Inspection Respiratory/Chest: No Respiratory Distress Cardiovascular: Normal Peripheral Pulses Peripheral Pulses: 2+: Radial (L), Radial (R) (Female) Exam: Deferred Rectal (Female) Exam: Deferred Back Exam: Normal Inspection, Full Range of Motion Extremities: No: Normal Inspection (Right wrist and hand with significant edema and bruising), Normal Range of Motion (Decreased range of motion to right wrist and the digits.), Non-Tender (Wrist tender with mobility passive and active and palpation) Neurological: Alert, Oriented, Normal Cognition Psychiatric: Normal Affect, Normal Mood Skin Exam: Warm, Dry, Intact, No Rash, Ecchymosis (Wrist and hand) Course - Vital Signs Text/Narrative:: 60-year-old female with injury to the right wrist after she sustained a fall on Thursday. She states she was walking outside and her right knee gave out. She states she fell with outstretched hands and injured her right wrist. She denies hearing a popping or snapping at that time. She has been using an immobilizer brace and icing the extremity. However she states it has become more sore and swollen. I have ordered an x-ray of the right wrist. CMS is positive to all of her digits and she is able to move all of her digits. Upon assessment she does have significant pain noted to the distal radial head. Last Recorded V/S: Last Vital Signs Temp 96.9 F 07/06/20 12:37 Pulse 80 07/06/20 12:37 Resp 18 07/06/20 12:37 BP 113/82 07/06/20 12:37 Pulse Ox 96 07/06/20 12:37 - Radiology Interpretation Free Text/Narrative:: Radiologist impression 4 view of the right wrist: 1. Degenerative changes as described above. 2. Nothing acute is seen. - Re-Assessments/Exams Free Text/Narrative Re-Assessment/Exam: 07/06/20 14:05 Nothing acute appreciated on right wrist x-ray. Patient will be discharged home. Recommend she continue to wear her right wrist splint. Ice 20 minutes at a time 3 times daily. Elevate the extremity as much as possible. May take ibuprofen 600 mg every 6-8 hours for the next 48 hours or Aleve 2 tabs every 12 hours for the next 48 hours. Departure - Departure Time of Disposition: 14:06 Disposition: Home, Self-Care 01 Condition: Good Clinical Impression: Right wrist sprain Qualifiers: Encounter type: initial encounter Qualified Code(s): S63.501A - Unspecified sprain of right wrist, initial encounter - Discharge Information Instructions: Wrist Sprain, Adult Referrals: Ruben Whyte MD [Primary Care Provider] - Forms: ED Department Discharge Additional Instructions: You were seen in the ED today with complaints of injury to your right wrist. Xrays were completed and they did not show any acute fracture. Recommend that you continue to use your wrist splint. Ice 20 minutes at a time three times daily. Elevate the wrist as much as possible. Take Ibuprofen 600mg by mouth every 6-8 hours for the next 48 hours or Aleve 2 tabs every 12 hours for the next 48 hours. Be sure to take with food. Sepsis Event Note (ED) - Evaluation Sepsis Screening Result: No Definite Risk - Focused Exam Vital Signs: Vital Signs Temp Pulse Resp BP Pulse Ox 07/06/20 12:37 96.9 F 80 18 113/82 96
--- NOTE | 2020-07-06 13:51 | CR ---
Right wrist: 4 views of the right wrist were obtained. Comparison: No prior right wrist exam is available. 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 Mild joint space narrowing is noted off the distal navicular bone. Joint space narrowing is also noted between the radius and navicular bone. No acute fracture or other abnormality is appreciated. Impression: 1. Degenerative change as described above. 2. Nothing acute is seen. Diagnostic code #2
== END 2020-07-06 14:27 | disposition home or self-care (01) ==
LOC: JD.ED 12:29
DX: S63.501A Unspecified sprain of right wrist, initial encounter (principal); E78.00 Pure hypercholesterolemia, unspecified; E11.9 Type 2 diabetes mellitus without complications; E66.9 Obesity, unspecified; Z68.44 Body mass index [BMI] 60.0-69.9, adult; Z88.8 Allergy status to other drugs, medicaments and biological substances; Z79.82 Long term (current) use of aspirin; Z79.899 Other long term (current) drug therapy; W18.30XA Fall on same level, unspecified, initial encounter
CPT/HCPCS: 73110-26-RT; 73110-RT; 99282; 99283-25

== ENCOUNTER 2020-08-20 02:17 | Emergency (ER) | payer MEDICARE, MEDICAID ==
[2020-08-20 03:01] VITALS: BP 128/75; PULSE 75
[2020-08-20] MEDS ORDERED: Orphenadrine 100 MG Tab.ER PO STA (03:12)
--- NOTE | 2020-08-20 03:19 | EDM.PDOC ---
ED HPI GENERAL MEDICAL PROBLEM - General Chief Complaint: General Stated Complaint: BODY PAINS Time Seen by Provider: 08/20/20 02:34 Source of Information: Reports: Patient History Limitations: Reports: No Limitations - History of Present Illness INITIAL COMMENTS - FREE TEXT/NARRATIVE: Ms. Rand is a very pleasant 60-year-old woman with a past medical history significant for chronic back pain, status post 3 lumbar laminectomies, and for which she is prescribed oxycodone 10 mg, 1 tablet po BID, who now presents the ED stating that she has had generalized body pain since this past 08/17/2020, however, she states that the majority of her pain is felt in her lower back, worse on the right than the left. She denies any recent injury. No recent fever, chills, cough, dyspnea, chest pain, abdominal pain, or urinary symptoms. She states that she last took her prescribed oxycodone around 14:00 yesterday afternoon. She states that her pain is preventing her from sleeping, but she did not take any pain medication this morning. Here in the ED, the patient is found to be hemodynamically stable, afebrile, saturating 95% on room air. Other than the lower back pain, the patient denies having a recent fever, chills, sore throat, ear pain, nasal or sinus congestion, cough, dyspnea, chest pain, palpitations, nausea, vomiting, constipation, diarrhea, abdominal pain, urinary symptoms, recent weight gain or weight loss, recent bloody bowel movements or black bowel movements, recent joint aches, headaches, or rashes. The patient's PCP is Dr. Shanell Morales. Her pain dude ranch manager is Luisito Marques DNP. Generalized Pain Score (Numeric/FACES): 7 - Related Data Allergies Allergy/AdvReac Type Severity Reaction Status Date / Time diltiazem Allergy Severe Facial Verified 07/06/20 12:41 Swelling gabapentin Allergy Severe Hives Verified 07/06/20 12:41 Home Meds: Home Meds ALPRAZolam [Xanax] 2 mg PO BEDTIME 07/21/15 [History] oxyCODONE HCl [Oxycodone HCl] 10 mg PO BID 12/16/16 [History] Fluticasone/Vilanterol [Breo Ellipta 100-25 MCG Inhalation Kit] 1 each IH DAILY 03/14/18 [History] atorvaSTATin Calcium [Lipitor] 20 mg PO DAILY 08/16/18 [History] Aspirin 81 mg PO DAILY 03/12/19 [History] Furosemide [Lasix] 20 mg PO DAILY 03/12/19 [History] oxyCODONE ER [OxyCONTIN] 10 mg PO Q12H PRN #20 tab.er 03/12/19 [Rx] Ondansetron [Zofran ODT] 4 mg PO Q6H PRN #10 tab.dis 09/16/19 [Rx] Orphenadrine [Norflex] 1 tab PO Q12H PRN #14 tab.er 08/20/20 [Rx] Past Medical History HEENT History: Reports: Allergic Rhinitis, Impaired Vision (wears glasses) Cardiovascular History: Reports: Blood Clots/VTE/DVT, High Cholesterol Musculoskeletal History: Reports: Fracture (right tibia, right ankle), Osteoarthritis Psychiatric History: Reports: Anxiety Endocrine/Metabolic History: Reports: Diabetes, Type II, Obesity/BMI 30+ - Infectious Disease History Infectious Disease History: Reports: Chicken Pox, Measles - Past Surgical History Cardiovascular Surgical History: Reports: Other (See Below) (Loop recorder) GI Surgical History: Reports: Colonoscopy (x 1), Other (See Below) (Partial splenectomy) Female Surgical History: Reports: D&C (x 1) Neurological Surgical History: Reports: Lumbar Spine (laminectomy, x 3) Social & Family History - Tobacco Use Tobacco Use Status *Q: Former Tobacco User Years of Tobacco use: 45 Packs/Tins Daily: 1 Month/Year Tobacco Last Used: Quit 2018 Tobacco Use Comment: Started smoking when 13 yrs old - Caffeine Use Caffeine Use: Reports: Coffee - Alcohol Use Alcohol Use History: No - Recreational Drug Use Recreational Drug Use: No - Living Situation & Occupation Living situation: Reports: , Alone Occupation: Disabled ED ROS GENERAL - Review of Systems Review Of Systems: Comprehensive ROS is negative, except as noted in HPI. Musculoskeletal: Reports: Back Pain (chronic) ED EXAM, GENERAL - Physical Exam Exam: See Below Exam Limited By: No Limitations General Appearance: Alert, WD/WN, No Apparent Distress (moves around easily) Eye Exam: Bilateral Eye: EOMI, Normal Inspection Ears: Normal External Exam, Hearing Grossly Normal Nose: Normal Inspection Throat/Mouth: Normal Inspection, Normal Lips, Normal Voice, No Airway Compromise Head: Atraumatic, Normocephalic Neck: Normal Inspection, Full Range of Motion Respiratory/Chest: No Respiratory Distress, Lungs Clear, Normal Breath Sounds, No Accessory Muscle Use Cardiovascular: Normal Peripheral Pulses, Regular Rate, Rhythm, No Gallop, No JVD, No Murmur, No Rub Peripheral Pulses: 3+: Radial (L), Radial (R) GI/Abdominal: Normal Bowel Sounds, Soft, Non-Tender, No Organomegaly, No Distention, No Abnormal Bruit, No Mass Back Exam: Full Range of Motion, Other (No visible abnormality, such as swelling, erythema, ecchymosis, or abrasion. There is reproducible tenderness across the sacrum and bilateral sacroiliac joints.). No: Paraspinal Tenderness, Vertebral Tenderness Extremities: Normal Inspection, Normal Range of Motion, Normal Capillary Refill Neurological: Alert, Oriented, Normal Cognition, No Motor/Sensory Deficits Psychiatric: Normal Affect Skin Exam: Warm, Dry, Intact, Normal Color, No Rash Course - Vital Signs Last Recorded V/S: Last Vital Signs Temp 36.1 C 08/20/20 02:55 Pulse 75 08/20/20 02:55 Resp 18 08/20/20 02:55 BP 128/75 08/20/20 02:55 Pulse Ox 95 08/20/20 02:55 - Orders/Labs/Meds Orders: Active Orders 24 hr Category Date Time Status Orphenadrine [Norflex] Med 08/20/20 03:12 Stat 100 mg PO ONETIME STA - Re-Assessments/Exams Free Text/Narrative Re-Assessment/Exam: 08/20/20 03:12 The patient appears to be suffering from strain or spasm of her lower back. I will start her on Norflex and submit a prescription for the same. She needs to stay active. Departure - Departure Time of Disposition: 03:13 Disposition: Home, Self-Care 01 Condition: Good Clinical Impression: Strain of muscle, fascia and tendon of lower back, initial encounter - Discharge Information *PRESCRIPTION DRUG MONITORING PROGRAM REVIEWED*: Not Applicable *COPY OF PRESCRIPTION DRUG MONITORING REPORT IN PATIENT CHADD: Not Applicable Referrals: Shanell Morales MD [Primary Care Provider] - Additional Instructions: You were seen in the emergency room for lower back pain, worse on the right than the left, since Thursday. Based on your history and physical examination, you are suffering from strain or spasm of you lower back muscles or connective tissue. You have been started on the muscle relaxant Norflex, and a prescription for Norflex has been sent to the [facility]. Take 1 tablet of Norflex every 12 hours, starting this evening, 08/20/2020, as prescribed. As discussed, it is very important that you stay active. Swimming is best, but walking is good, as well. We recommend that you follow-up with your PCP, Dr. Shanell Morales, at the next available appointment. If any other problems, please do not hesitate to return to the ER. Sepsis Event Note (ED) - Evaluation Sepsis Screening Result: No Definite Risk - Focused Exam Vital Signs: Vital Signs Temp Pulse Resp BP Pulse Ox 08/20/20 02:55 36.1 C 75 18 128/75 95 - My Orders Last 24 Hours: My Active Orders 08/20/20 03:12 Orphenadrine [Norflex] 100 mg PO ONETIME STA - Assessment/Plan Last 24 Hours: My Active Orders 08/20/20 03:12 Orphenadrine [Norflex] 100 mg PO ONETIME STA
== END 2020-08-20 03:18 | disposition home or self-care (01) ==
LOC: JD.ED 02:17
DX: S39.012A Strain of muscle, fascia and tendon of lower back, initial encounter (principal); E78.00 Pure hypercholesterolemia, unspecified; M19.90 Unspecified osteoarthritis, unspecified site; E11.9 Type 2 diabetes mellitus without complications; E66.9 Obesity, unspecified; Z68.44 Body mass index [BMI] 60.0-69.9, adult; Z88.8 Allergy status to other drugs, medicaments and biological substances; Z79.82 Long term (current) use of aspirin; Z79.899 Other long term (current) drug therapy; Z86.718 Personal history of other venous thrombosis and embolism; Z87.891 Personal history of nicotine dependence
CPT/HCPCS: 99283; A9270

== ENCOUNTER 2020-09-21 21:35 | Emergency (ER) | payer MEDICARE, MEDICAID ==
[2020-09-21 22:11] VITALS: BP 115/77; PULSE 77
[2020-09-21] MEDS ORDERED: Sodium Chloride 0.9% 10 ML Syringe FLUSH PRN (22:18)
--- NOTE | 2020-09-22 00:12 | EDM.PDOC ---
ED HPI GENERAL MEDICAL PROBLEM - General Chief Complaint: Abdominal Pain Stated Complaint: POSS BLOOD CLOT LT SPLEEN Time Seen by Provider: 09/21/20 22:17 Source of Information: Reports: Patient, RN Notes Reviewed - History of Present Illness INITIAL COMMENTS - FREE TEXT/NARRATIVE: 60 yr old female with L upper abd pain, L lower lateral chest wall area pain off and on for about the past 2 wks. Pain is worse when she first stands up and moves, better at rest. No cough, fever, chills or difficulty breathing. Left Upper Abdomen Pain Score (Numeric/FACES): 8 - Related Data Allergies Allergy/AdvReac Type Severity Reaction Status Date / Time diltiazem Allergy Severe Facial Verified 07/06/20 12:41 Swelling gabapentin Allergy Severe Hives Verified 07/06/20 12:41 Home Meds: Home Meds ALPRAZolam [Xanax] 2 mg PO BEDTIME 07/21/15 [History] oxyCODONE HCl [Oxycodone HCl] 10 mg PO BID 12/16/16 [History] Fluticasone/Vilanterol [Breo Ellipta 100-25 MCG Inhalation Kit] 1 each IH DAILY 03/14/18 [History] atorvaSTATin Calcium [Lipitor] 20 mg PO DAILY 08/16/18 [History] Aspirin 81 mg PO DAILY 03/12/19 [History] Furosemide [Lasix] 20 mg PO DAILY 03/12/19 [History] Ondansetron [Zofran ODT] 4 mg PO Q6H PRN #10 tab.dis 09/16/19 [Rx] Past Medical History HEENT History: Reports: Allergic Rhinitis, Impaired Vision Other HEENT History: Wears glasses Cardiovascular History: Reports: Blood Clots/VTE/DVT, High Cholesterol Respiratory History: Reports: Pneumonia, Recurrent [employer] SU[employer] History: Reports: Musculoskeletal History: Reports: Fracture, Osteoarthritis Neurological History: Reports: Migraines Psychiatric History: Reports: Anxiety Endocrine/Metabolic History: Reports: Diabetes, Type II, Obesity/BMI 30+ Hematologic History: Reports: None Immunologic History: Reports: None Oncologic (Cancer) History: Reports: None Dermatologic History: Reports: None - Infectious Disease History Infectious Disease History: Reports: Chicken Pox, Measles - Past Surgical History Head Surgeries/Procedures: Reports: None GI Surgical History: Reports: Colonoscopy, Other (See Below) Other GI Surgeries/Procedures: blood clot to spleen. Female Surgical History: Reports: D&C Neurological Surgical History: Reports: Lumbar Spine Musculoskeletal Surgical History: Reports: Other (See Below) Other Musculoskeletal Surgeries/Procedures:: Back surgery Social & Family History - Family History Family Medical History: No Pertinent Family History - Tobacco Use Tobacco Use Status *Q: Former Tobacco User Used Tobacco, but Quit: Yes Month/Year Tobacco Last Used: 2 - Caffeine Use Caffeine Use: Reports: Soda - Recreational Drug Use Recreational Drug Use: No - Living Situation & Occupation Living situation: Reports: , Alone Occupation: Disabled ED ROS GENERAL - Review of Systems Review Of Systems: See Below Constitutional: Denies: Fever, Chills, Diaphoresis HEENT: Reports: No Symptoms Respiratory: Denies: Shortness of Breath, Pleuritic Chest Pain, Cough Cardiovascular: Denies: Chest Pain GI/Abdominal: Reports: Abdominal Pain. Denies: Constipation, Diarrhea, Hematochezia, Melena, Nausea, Vomiting Musculoskeletal: Denies: Back Pain Skin: Reports: No Symptoms Neurological: Reports: No Symptoms ED EXAM, GENERAL - Physical Exam Exam: See Below General Appearance: Alert, No Apparent Distress Head: Atraumatic Neck: Supple Respiratory/Chest: No Respiratory Distress, Lungs Clear, Normal Breath Sounds, Other (Mild tenderness L lower lat chest wall, no bruising or swelling visible) Cardiovascular: Regular Rate, Rhythm GI/Abdominal: Soft, Tender (very mild tenderness LUQ, remainder of abd soft and nontender) Back Exam: No: CVA Tenderness (L), CVA Tenderness (R) Extremities: Normal Inspection. No: Pedal Edema, Leg Pain Neurological: Alert, Oriented, No Motor/Sensory Deficits Skin Exam: Warm, Dry, Normal Color Course - Vital Signs Last Recorded V/S: Last Vital Signs Temp 96.3 F L 09/21/20 22:08 Pulse 77 09/21/20 22:08 Resp 20 09/21/20 22:08 BP 115/77 09/21/20 22:08 Pulse Ox 98 09/21/20 22:08 - Orders/Labs/Meds Orders: Active Orders 24 hr Category Date Time Status Chest 1V Frontal [CR] Stat Exams 09/21/20 22:42 Taken Peripheral IV Insertion Adult [OM.PC] Stat Oth 09/21/20 22:19 Ordered Labs: Laboratory Tests 09/21/20 09/21/2021 Range/Units 22:15 22:15 22:15 WBC 8.86 (3.98-10.04) K/mm3 RBC 4.85 (3.98-5.22) M/mm3 Hgb 14.4 D (11.2-15.7) gm/dl Hct 43.5 (34.1-44.9) % MCV 89.7 (79.4-94.8) fl MCH 29.7 (25.6-32.2) pg MCHC 33.1 (32.2-35.5) g/dl RDW Std Deviation 44.8 (36.4-46.3) fL Plt Count 269 (182-369) K/mm3 MPV 9.4 (9.4-12.3) fl Neut % (Auto) 45.3 (34.0-71.1) % Lymph % (Auto) 44.9 (19.3-51.7) % [place] % (Auto) 8.2 (4.7-12.5) % Eos % (Auto) 1.2 (0.7-5.8) Baso % (Auto) 0.3 (0.1-1.2) % Neut # (Auto) 4.00 (1.56-6.13) K/mm3 Lymph # (Auto) 3.98 H (1.18-3.74) K/mm3 [place] # (Auto) 0.73 H (0.24-0.36) K/mm3 Eos # (Auto) 0.11 (0.04-0.36) K/mm3 Baso # (Auto) 0.03 (0.01-0.08) K/mm3 D-Dimer, Quantitative 0.50 (0.19-0.50) mg/L Sodium (136-145) mEq/L Potassium (3.5-5.1) mEq/L Chloride (98-107) mEq/L Carbon Dioxide (21-32) mEq/L Anion Gap (5-15) BUN (7-18) mg/dL Creatinine (0.55-1.02) mg/dL Est Cr Clr Drug Dosing mL/min Estimated GFR (MDRD) (>60) mL/min BUN/Creatinine Ratio (14-18) Glucose (70-99) mg/dL Calcium (8.5-10.1) mg/dL Total Bilirubin (0.2-1.0) mg/dL AST (15-37) U/L ALT (14-59) U/L Alkaline Phosphatase (46-116) U/L C-Reactive Protein 0.4 (<1.0) mg/dL Total Protein (6.4-8.2) g/dl Albumin (3.4-5.0) g/dl Globulin gm/dL Albumin/Globulin Ratio (1-2) Lipase (73-393) U/L 09/21/20 Range/Units 22:15 WBC (3.98-10.04) K/mm3 RBC (3.98-5.22) M/mm3 Hgb (11.2-15.7) gm/dl Hct (34.1-44.9) % MCV (79.4-94.8) fl MCH (25.6-32.2) pg MCHC (32.2-35.5) g/dl RDW Std Deviation (36.4-46.3) fL Plt Count (182-369) K/mm3 MPV (9.4-12.3) fl Neut % (Auto) (34.0-71.1) % Lymph % (Auto) (19.3-51.7) % [place] % (Auto) (4.7-12.5) % Eos % (Auto) (0.7-5.8) Baso % (Auto) (0.1-1.2) % Neut # (Auto) (1.56-6.13) K/mm3 Lymph # (Auto) (1.18-3.74) K/mm3 [place] # (Auto) (0.24-0.36) K/mm3 Eos # (Auto) (0.04-0.36) K/mm3 Baso # (Auto) (0.01-0.08) K/mm3 D-Dimer, Quantitative (0.19-0.50) mg/L Sodium 140 (136-145) mEq/L Potassium 3.6 (3.5-5.1) mEq/L Chloride 104 (98-107) mEq/L Carbon Dioxide 28 (21-32) mEq/L Anion Gap 11.6 (5-15) BUN 22 H (7-18) mg/dL Creatinine 0.9 (0.55-1.02) mg/dL Est Cr Clr Drug Dosing 67.73 mL/min Estimated GFR (MDRD) > 60 (>60) mL/min BUN/Creatinine Ratio 24.4 H (14-18) Glucose 119 H (70-99) mg/dL Calcium 8.8 (8.5-10.1) mg/dL Total Bilirubin 0.4 (0.2-1.0) mg/dL AST 19 (15-37) U/L ALT 41 (14-59) U/L Alkaline Phosphatase 92 (46-116) U/L C-Reactive Protein (<1.0) mg/dL Total Protein 7.1 (6.4-8.2) g/dl Albumin 3.8 (3.4-5.0) g/dl Globulin 3.3 gm/dL Albumin/Globulin Ratio 1.2 (1-2) Lipase 77 (73-393) U/L Meds: Medications Discontinued Medications Generic Name Dose Route Start Last Admin Trade Name Freq PRN Reason Stop Dose Admin Sodium Chloride 10 ml 09/21/20 22:18 Sodium Chloride 0.9% 10 Ml Syringe FLUSH ASDIRECTED PRN Keep Vein Open - Re-Assessments/Exams Free Text/Narrative Re-Assessment/Exam: 09/22/20 00:51 Labs including D dimer nl, CXR nl, discharge instr. as documented. Departure - Departure Time of Disposition: 00:11 Disposition: Home, Self-Care 01 Condition: Fair Clinical Impression: Chest wall pain Abdominal pain Qualifiers: Abdominal location: left upper quadrant Qualified Code(s): R10.12 - Left upper quadrant pain - Discharge Information Instructions: Abdominal Pain, Adult, Chest Wall Pain Referrals: Shanell Morales MD [Primary Care Provider] - Forms: ED Department Discharge Additional Instructions: Avoid heavy lifting until pain resolves. Try alternate ice and heat as needed for severe pain. Tylenol q 6 to 8 hr as needed. Follow up clinic if this does not resolve over the next 5 to 7 days as expected. Return to ED as needed, especially if symptoms worsening in any way. Sepsis Event Note (ED) - Evaluation Sepsis Screening Result: No Definite Risk - Focused Exam Vital Signs: Vital Signs Temp Pulse Resp BP Pulse Ox 09/21/20 22:08 96.3 F L 77 20 115/77 98 - My Orders Last 24 Hours: My Active Orders 09/21/20 22:19 Peripheral IV Insertion Adult [OM.PC] Stat 09/21/20 22:42 Chest 1V Frontal [CR] Stat - Assessment/Plan Last 24 Hours: My Active Orders 09/21/20 22:19 Peripheral IV Insertion Adult [OM.PC] Stat 09/21/20 22:42 Chest 1V Frontal [CR] Stat
--- NOTE | 2020-09-22 07:50 | CR ---
Chest: Portable view of the chest was obtained. Comparison: Prior chest x-ray in 09/23/19. Heart size and mediastinum are within normal limits. Oval density is seen overlying the left heart, please correlate as to etiology. Lungs are clear of no acute parenchymal change. Bony structure shows nothing acute. Impression: 1. Nothing acute is seen on portable chest x-ray. Diagnostic code #2
== END 2020-09-22 00:19 | disposition home or self-care (01) ==
LOC: JD.ED 21:35
DX: R10.12 Left upper quadrant pain (principal); R07.89 Other chest pain; E78.00 Pure hypercholesterolemia, unspecified; E11.9 Type 2 diabetes mellitus without complications; E66.9 Obesity, unspecified; Z68.30 Body mass index [BMI] 30.0-30.9, adult; Z87.891 Personal history of nicotine dependence; Z88.5 Allergy status to narcotic agent; Z79.899 Other long term (current) drug therapy; Z79.82 Long term (current) use of aspirin
CPT/HCPCS: 36415; 71045; 71045-26; 80053; 83690; 85025; 85379; 86140; 99284; 99285-25

== ENCOUNTER 2021-04-01 10:20 | Emergency (ER) | payer MEDICARE, MEDICAID ==
[2021-04-01 10:53] VITALS: BP 113/64
--- NOTE | 2021-04-01 12:28 | EDM.PDOC ---
ED HPI GENERAL MEDICAL PROBLEM - General Chief Complaint: Respiratory Problem Stated Complaint: COUGH CHEST TIGHT Time Seen by Provider: 04/01/21 10:47 Source of Information: Reports: Patient History Limitations: Reports: No Limitations - History of Present Illness INITIAL COMMENTS - FREE TEXT/NARRATIVE: The patient presents with a cough and scratchy throat. This has been going on for a few days. She also has some chest tightness with coughing. She has a history of pneumonia and a pulmonary embolism. She has no fever or chills. She has not been immunized for COVID. She quit smoking 5 years ago. Onset: Gradual Duration: Day(s): Location: Reports: Chest Quality: Reports: Other (tightness) Severity: Mild Improves with: Reports: None Worsens with: Reports: None Associated Symptoms: Reports: Chest Pain, Cough. Denies: Fever/Chills, Headaches, Nausea/Vomiting, Shortness of Breath - Related Data Allergies Allergy/AdvReac Type Severity Reaction Status Date / Time diltiazem Allergy Severe Facial Verified 04/01/21 10:53 Swelling gabapentin Allergy Severe Hives Verified 04/01/21 10:53 Home Meds: Home Meds ALPRAZolam [Xanax] 2 mg PO BEDTIME 07/21/15 [History] oxyCODONE HCl [Oxycodone HCl] 10 mg PO BID 12/16/16 [History] Fluticasone/Vilanterol [Breo Ellipta 100-25 MCG Inhalation Kit] 1 each IH DAILY 03/14/18 [History] atorvaSTATin Calcium [Lipitor] 20 mg PO DAILY 08/16/18 [History] Aspirin 81 mg PO DAILY 03/12/19 [History] Furosemide [Lasix] 20 mg PO DAILY 03/12/19 [History] Ondansetron [Zofran ODT] 4 mg PO Q6H PRN #10 tab.dis 09/16/19 [Rx] Azithromycin [Zithromax] 250 mg PO DAILY #6 tab 04/01/21 [Rx] Codeine/Promethazine [Phenergan with Codeine] 5 - 10 ml PO Q6HR PRN #300 ml 04/01/21 [Rx] Past Medical History HEENT History: Reports: Allergic Rhinitis, Impaired Vision Other HEENT History: Wears glasses Cardiovascular History: Reports: Blood Clots/VTE/DVT, High Cholesterol Respiratory History: Reports: Pneumonia, Recurrent [employer]INT [employer] History: Reports: Musculoskeletal History: Reports: Fracture, Osteoarthritis Neurological History: Reports: Migraines Psychiatric History: Reports: Anxiety Endocrine/Metabolic History: Reports: Diabetes, Type II, Obesity/BMI 30+ Hematologic History: Reports: None Immunologic History: Reports: None Oncologic (Cancer) History: Reports: None Dermatologic History: Reports: None - Infectious Disease History Infectious Disease History: Reports: Chicken Pox, Measles - Past Surgical History Head Surgeries/Procedures: Reports: None Cardiovascular Surgical History: Reports: Other (See Below) GI Surgical History: Reports: Colonoscopy, Other (See Below) Other GI Surgeries/Procedures: blood clot to spleen. Female Surgical History: Reports: D&C Neurological Surgical History: Reports: Lumbar Spine Musculoskeletal Surgical History: Reports: Other (See Below) Other Musculoskeletal Surgeries/Procedures:: Back surgery Social & Family History - Family History Family Medical History: No Pertinent Family History - Tobacco Use Tobacco Use Status *Q: Former Tobacco User Used Tobacco, but Quit: Yes Month/Year Tobacco Last Used: 2015 - Caffeine Use Caffeine Use: Reports: Soda - Recreational Drug Use Recreational Drug Use: No - Living Situation & Occupation Living situation: Reports: , Alone Occupation: Disabled ED ROS GENERAL - Review of Systems Review Of Systems: See Below Constitutional: Reports: No Symptoms HEENT: Reports: No Symptoms Respiratory: Reports: Cough. Denies: Shortness of Breath Cardiovascular: Reports: Chest Pain Endocrine: Reports: No Symptoms GI/Abdominal: Reports: No Symptoms : Reports: No Symptoms Musculoskeletal: Reports: No Symptoms ED EXAM, GENERAL - Physical Exam Exam: See Below Exam Limited By: No Limitations General Appearance: Alert, No Apparent Distress Ears: Normal External Exam Nose: Normal Inspection Head: Atraumatic, Normocephalic Neck: Normal Inspection Respiratory/Chest: No Respiratory Distress, Lungs Clear, Normal Breath Sounds Cardiovascular: Regular Rate, Rhythm, No Edema, No Murmur GI/Abdominal: Soft, Non-Tender, No Organomegaly, No Mass Back Exam: Normal Inspection Extremities: Normal Inspection Course - Vital Signs Last Recorded V/S: Last Vital Signs Temp 97.5 F 04/01/21 10:42 Pulse 82 04/01/21 10:42 Resp 20 04/01/21 10:42 BP 113/64 04/01/21 10:42 Pulse Ox 96 04/01/21 10:42 - Orders/Labs/Meds Orders: Active Orders 24 hr Category Date Time Status Cardiac Monitoring [RC] . DIRECTED Care 04/01/21 11:12 Active CXR [Chest 1V Frontal] [CR] Stat Exams 04/01/21 11:11 Taken Labs: Laboratory Tests 04/01/21 04/01/21 04/01/21 Range/Units 10:53 11:25 11:25 WBC 11.59 H (3.98-10.04) K/mm3 RBC 4.52 (3.98-5.22) M/mm3 Hgb 13.7 (11.2-15.7) gm/dl Hct 41.7 (34.1-44.9) % MCV 92.3 (79.4-94.8) fl MCH 30.3 (25.6-32.2) pg MCHC 32.9 (32.2-35.5) g/dl RDW Std Deviation 46.3 (36.4-46.3) fL Plt Count 283 (182-369) K/mm3 MPV 9.4 (9.4-12.3) fl Neut % (Auto) 61.1 (34.0-71.1) % Lymph % (Auto) 29.3 (19.3-51.7) % [place] % (Auto) 7.5 (4.7-12.5) % Eos % (Auto) 1.5 (0.7-5.8) Baso % (Auto) 0.4 (0.1-1.2) % Neut # (Auto) 7.08 H (1.56-6.13) K/mm3 Lymph # (Auto) 3.40 (1.18-3.74) K/mm3 [place] # (Auto) 0.87 H (0.24-0.36) K/mm3 Eos # (Auto) 0.17 (0.04-0.36) K/mm3 Baso # (Auto) 0.05 (0.01-0.08) K/mm3 Sodium 140 (136-145) mEq/L Potassium 4.1 (3.5-5.1) mEq/L Chloride 106 (98-107) mEq/L Carbon Dioxide 25 (21-32) mEq/L Anion Gap 13.1 (5-15) BUN 14 (7-18) mg/dL Creatinine 0.8 (0.55-1.02) mg/dL Est Cr Clr Drug Dosing 76.20 mL/min Estimated GFR (MDRD) > 60 (>60) mL/min BUN/Creatinine Ratio 17.5 (14-18) Glucose 101 H (70-99) mg/dL Calcium 8.8 (8.5-10.1) mg/dL Total Bilirubin 0.4 (0.2-1.0) mg/dL AST 21 (15-37) U/L ALT 25 (14-59) U/L Alkaline Phosphatase 94 (46-116) U/L C-Reactive Protein 1.1 H* (<1.0) mg/dL Total Protein 7.2 (6.4-8.2) g/dl Albumin 3.4 (3.4-5.0) g/dl Globulin 3.8 gm/dL Albumin/Globulin Ratio 0.9 L (1-2) SARS-CoV-2 RNA (KAYE) Negative (NEGATIVE) - Re-Assessments/Exams Free Text/Narrative Re-Assessment/Exam: 04/01/21 12:29 I ordered a CXR, labs and COVID 19. Her CXR looks good. 04/01/21 12:31 Her WBC was elevated at 11.59. Her CRP was elevated at 1.1. Her COVID is negative. She has bronchitis. I will get her on a Z-brenda and phenergan with codeine. Departure - Departure Time of Disposition: 12:35 Disposition: Home, Self-Care 01 Condition: Good Clinical Impression: Bronchitis - Discharge Information *PRESCRIPTION DRUG MONITORING PROGRAM REVIEWED*: Not Applicable *COPY OF PRESCRIPTION DRUG MONITORING REPORT IN PATIENT CHADD: Not Applicable Prescriptions: Codeine/Promethazine [Phenergan with Codeine] 5 - 10 ml PO Q6HR PRN #300 ml PRN Reason: Cough Azithromycin [Zithromax] 250 mg PO DAILY #6 tab Referrals: Claudia Mares MD [Primary Care Provider] - 1 Week Additional Instructions: Take the zithromax 2 pills on day 1 and 1 pill on day 2 through 5. Use the phenergan with codeine 5 to 10mls every 6 hours as needed for cough. Please return if you are worse. Sepsis Event Note (ED) - Evaluation Sepsis Screening Result: No Definite Risk - Focused Exam Vital Signs: Vital Signs Temp Pulse Resp BP Pulse Ox 04/01/21 10:42 97.5 F 82 20 113/64 96 - My Orders Last 24 Hours: My Active Orders 04/01/21 11:11 CXR [Chest 1V Frontal] [CR] Stat 04/01/21 11:12 Cardiac Monitoring [RC] . DIRECTED - Assessment/Plan Last 24 Hours: My Active Orders 04/01/21 11:11 CXR [Chest 1V Frontal] [CR] Stat 04/01/21 11:12 Cardiac Monitoring [RC] . DIRECTED
--- NOTE | 2021-04-01 12:32 | CR ---
Chest: Frontal view of the chest was obtained. Comparison: Prior chest x-ray of 09/21/20. Heart size and mediastinum are within normal limits. Lungs are clear with no acute parenchymal change. Slight disc space narrowing is noted within the spine with mild scattered endplate osteophytes. Impression: 1. Nothing acute is seen on frontal chest x-ray. Diagnostic code #2
[2021-04-01 13:22] VITALS: PULSE 80
== END 2021-04-01 12:42 | disposition home or self-care (01) ==
LOC: JD.ED 10:20
DX: J40 Bronchitis, not specified as acute or chronic (principal); E78.00 Pure hypercholesterolemia, unspecified; M19.90 Unspecified osteoarthritis, unspecified site; E11.9 Type 2 diabetes mellitus without complications; E66.9 Obesity, unspecified; Z68.28 Body mass index [BMI] 28.0-28.9, adult; Z87.891 Personal history of nicotine dependence; Z88.8 Allergy status to other drugs, medicaments and biological substances; Z88.6 Allergy status to analgesic agent; Z79.82 Long term (current) use of aspirin; Z79.899 Other long term (current) drug therapy; Z20.822 Contact with and (suspected) exposure to COVID-19
CPT/HCPCS: 36415; 71045; 80053; 85025; 86140; 99283; U0002

== ENCOUNTER 2022-04-20 07:52 | Emergency (ER) | payer MEDICARE, MEDICAID ==
[2022-04-20 08:10] VITALS: BP 105/62; PULSE 89
[2022-04-20] MEDS ORDERED: Magnesium Citrate Solution 296 ML Bottle PO ONE (08:34)
== END 2022-04-20 10:23 | disposition home or self-care (01) ==
LOC: JD.ED 07:52
DX: K59.00 Constipation, unspecified (principal); E11.9 Type 2 diabetes mellitus without complications; E66.9 Obesity, unspecified; Z68.27 Body mass index [BMI] 27.0-27.9, adult; Z88.8 Allergy status to other drugs, medicaments and biological substances; Z79.899 Other long term (current) drug therapy; Z79.82 Long term (current) use of aspirin
CPT/HCPCS: 36415; 74019; 74019-26; 80053; 85025; 99283

== ENCOUNTER 2023-04-30 14:03 | Emergency (ER) | payer MEDICARE, MEDICAID ==
[2023-04-30 14:59] LABS: BASOPHILS PERCENT AUTO 0.3 % (0.0-1.0); EOSINOPHILS PERCENT AUTO 0.2 % (0.0-6.0); HEMATOCRIT 45.6 % (37.0-47.0); HEMOGLOBIN 15.5 gm/dl (12.0-16.0); IMMATURE GRAN ABSOLUTE AUTO 0.01 K/mm3 (0.00-0.05); IMMATURE GRAN PERCENT AUTO 0.2 % (0.0-0.4); LYMPHOCYTES ABSOLUTE AUTO 1.4 K/mm3 (1.0-4.8); LYMPHOCYTES PERCENT AUTO 21.7 % (24.0-44.0); MEAN CORPUSCULAR HEMOGLOBIN 30.5 pg (28.0-32.0); MEAN CORPUSCULAR VOLUME 89.6 fl (83.0-99.0); MEAN PLATELET VOLUME 9.2 fl (9.4-12.3); MONOCYTES PERCENT AUTO 15.7 % (0.0-8.0); NEUTROPHILS ABSOLUTE AUTO 3.9 K/mm3 (1.8-7.7); NEUTROPHILS PERCENT AUTO 61.9 % (41.0-71.0); PLATELET COUNT,PLT 171 K/mm3 (150-400); RED BLOOD CELL COUNT 5.09 M/mm3 (4.10-5.30); WHITE BLOOD CELL COUNT,WBC 6.23 K/mm3 (3.9-11.3)
[2023-04-30 15:18] LABS: INR 1.01; PROTHROMBIN TIME 10.8 SECONDS (9.7-12.0)
[2023-04-30 15:19] LABS: D-DIMER QUANTITATIVE 1.01 mg/L (0.19-0.50)
[2023-04-30] MEDS ORDERED: Iopamidol 755 Mg/ML 100 ML Bottle IVPUSH ONE (15:25)
[2023-04-30 15:26] LABS: A/G RATIO 0.9 (1-2); ALBUMIN 3.5 g/dl (3.4-5.0); ANION GAP 15.2 (5-15); BILIRUBIN TOTAL 0.3 mg/dL (0.2-1.0); BUN/CREATININE RATIO 21.1 (14-18); CALCIUM 8.6 mg/dL (8.5-10.1); CREATININE 0.9 mg/dL (0.55-1.02); EST CRCL DRUG DOSING (CG) 65.13 mL/min; MAGNESIUM 1.9 mg/dL (1.8-2.4); PROTEIN TOTAL,TP 7.4 g/dl (6.4-8.2)
[2023-04-30] MEDS ORDERED: Sodium Chloride 0.9% 100 ML IV SCH (15:30)
[2023-04-30 15:37] LABS: POTASSIUM,K 4.2 mEq/L (3.5-5.1)
[2023-04-30] MEDS ORDERED: Sodium Chloride 0.9% 1,000 ML IV SCH (15:45)
[2023-04-30] MEDS ORDERED: Ketorolac 15 MG/ML SDV IVPUSH ONE (16:03)
[2023-04-30 16:17] LABS: CORONAVIRUS COVID-19 NAA POSITIVE (NEGATIVE); INFLUENZA A NAA NEGATIVE (NEGATIVE); RESPIRATORY SYNCYTIAL VIR NAA NEGATIVE (NEGATIVE)
[2023-04-30] MEDS ORDERED: Acetaminophen 325 MG Tab PO ONE (17:10)
[2023-04-30 18:43] VITALS: BP 100/56; PULSE 88
== END 2023-04-30 18:00 | disposition home or self-care (01) ==
LOC: JD.ED 14:03
DX: U07.1 COVID-19 (principal); E78.00 Pure hypercholesterolemia, unspecified; E11.9 Type 2 diabetes mellitus without complications; E66.9 Obesity, unspecified; Z87.891 Personal history of nicotine dependence; Z79.899 Other long term (current) drug therapy; Z79.82 Long term (current) use of aspirin; Z88.8 Allergy status to other drugs, medicaments and biological substances; Z68.25 Body mass index [BMI] 25.0-25.9, adult
CPT/HCPCS: 0241U; 36415; 71045; 71275; 80053; 83605; 83735; 84484; 85025; 85379; 85610; 93005; 96361; 96374; 99285; J1885; J3490; J7030; Q9967